=== PATIENT | female | born 1975 | race Caucasian/White ===

== ENCOUNTER 2024-03-11 12:09 | Inpatient (IN) | payer OTHER, SELFPAY ==
[2024-03-11] VITALS (32 sets, daily range): BP systolic 78–200; BP diastolic 39–114; PULSE 81–141; RESP 0–24; TEMP 34.7–37.2; O2SAT 50–100; BMI 29.5; BMI 29.6
--- NOTE | ~2024-03-11 | XR_ITS ---
EXAMINATION: XR CHEST CLINICAL INFORMATION: Respiratory arrest COMPARISON: None available. TECHNIQUE: Frontal view of the chest was obtained. FINDINGS: ET tube is approximately 3.3 cm above the alisia. NG tube is in place, distal tip not included, side hole below the GE junction. Partial visualization of distended air-filled structure in the left upper quadrant. Heart, mediastinum, vascularity within normal limits Paddle partially obscures the right upper lung but no consolidations or effusions are recognized. Bony structures are intact. XR/XR chest 1V IMPRESSION: Lines as described. No acute cardiopulmonary disease.
--- NOTE | ~2024-03-11 | CT_ITS ---
EXAMINATION: CT HEAD WITHOUT CONTRAST CLINICAL INFORMATION: Altered mental status. Respiratory arrest. Unresponsive. COMPARISON: CT head from 03/11/2024. TECHNIQUE: Contiguous axial imaging was performed from the skull base to vertex without intravenous administration of contrast. This CT examination was performed using dose optimization techniques as appropriate, variously including the following: *Automated exposure control. *Adjustment of mA and/or kV according to patient size (this includes techniques or standardized protocols for targeted exams where dose is matched to indication/reason for exam; i.e. extremities or head). *Use of iterative reconstruction technique. DLP: 734 mGy-cm FINDINGS: There is no evidence of acute intracranial hemorrhage or edematous territorial infarction. Garcia-white matter differentiation is preserved. There is no abnormal attenuation within the brain parenchyma. The ventricles are normal in morphology and size. No evidence for obstructive hydrocephalus. No abnormal mass effect or midline shift. No extra-axial fluid collections. No acute soft tissue or osseous abnormalities. Mild mucosal thickening of the paranasal sinuses. The mastoid air cells and middle ear cavities are clear. CT/CT head/brain wo IV con IMPRESSION: No evidence of acute intracranial hemorrhage or edematous territorial infarction.
--- NOTE | ~2024-03-11 | XR_ITS ---
EXAMINATION: XR CHEST CLINICAL INFORMATION: Possible pneumonia COMPARISON: Previous chest x-ray and chest CTA from yesterday TECHNIQUE: Frontal view of the chest was obtained. FINDINGS: Endotracheal tube tip 5 cm above the [place]. Nasogastric tube projects over proximal to mid stomach. Cardiac and mediastinal contours are normal. The lungs are clear without evidence of pneumonia. No pleural effusion or pneumothorax. XR/XR chest 1V IMPRESSION: Satisfactory position of endotracheal tube and nasogastric tube. No evidence of pneumonia.
--- NOTE | ~2024-03-11 | US_ITS ---
EXAMINATION: US VENOUS ULTRASOUND WITH DOPPLER LOWER EXTREMITY, BILATERAL CLINICAL INFORMATION: Pulmonary embolism COMPARISON: None available. TECHNIQUE: Ultrasound of the deep veins is performed from the hip to the calf with compression sonography and color and pulse Doppler assessment. Spectral analysis with color-flow imaging is performed. FINDINGS: RIGHT: There is normal venous compression and respiratory variation and augmented flow. The visualized common femoral vein, superficial femoral vein, profunda femoral vein, popliteal vein, and the trifurcation region shows no evidence of deep venous thrombosis. There is no significant popliteal fossa cyst. LEFT: There is normal venous compression and respiratory variation and augmented flow. The visualized common femoral vein, superficial femoral vein, profunda femoral vein, popliteal vein, and the trifurcation region shows no evidence of deep venous thrombosis. There is no significant popliteal fossa cyst. If the patient's symptoms persist, followup ultrasound in 5 days 7 days might be of value to exclude proximal propagation from a non-visualized calf vein. US/US venous duplex LE BI IMPRESSION: No DVT demonstrated in the bilateral lower extremity.
--- NOTE | ~2024-03-11 | CT_ITS ---
EXAMINATION: CT ANGIOGRAM OF THE CHEST WITH AND WITHOUT CONTRAST (CT PULMONARY ANGIOGRAM FOR PE) CLINICAL INFORMATION: Altered mental status (unresponsive). COMPARISON: None available. TECHNIQUE: Prior to contrast administration, noncontrast localization images were obtained. Subsequently, multidetector volumetric imaging was performed from the thoracic inlet to below the diaphragms following the administration of 65 mL Omnipaque 350 intravenous contrast. No contrast reaction reported Sagittal, coronal, and MIP oblique sagittal reformatted images were obtained on the CT workstation, uploaded to PACS, and reviewed. This CT examination was performed using dose optimization techniques as appropriate, variously including the following: *Automated exposure control *Adjustment of mA and/or kV according to patient size (this includes techniques or standardized protocols for targeted exams where dose is matched to indication/reason for exam; i.e. extremities or head) *Use of iterative reconstruction technique Total exam dose-length product 1201 mGy-cm FINDINGS: QUALITY OF STUDY/CONTRAST BOLUS: Suboptimal. PULMONARY ARTERIES: Within the right upper lobe anterior branch (11:[id number]), a small filling defect is seen. There are 2 additional bull's-eye defects within smaller upper lobe branches suspicious for small pulmonary emboli. THORACIC AORTA: No aneurysm. LUNG: No focal consolidation, nodules or masses. PLEURA: No pleural effusion or pneumothorax. MEDIASTINUM: Normal heart size. No pericardial effusion. No hilar or mediastinal lymphadenopathy. No evidence of septal bowing or right heart strain. Endotracheal and nasogastric tubes are noted. CORONARY ARTERY CALCIFICATION: None visualized on this study. CHEST WALL/AXILLA: No axillary or internal mammary lymphadenopathy. OSSEOUS STRUCTURES: There is multi-level lower cervical and thoracic spondylosis. No acute or aggressive osseous finding is noted. UPPER ABDOMEN: Unremarkable. No reflux of contrast into the hepatic veins to suggest elevated right heart pressures. CT/CT angio chest PE protocol IMPRESSION: Somewhat suboptimal bolus phase. No large central pulmonary embolus is seen. Small right upper lobe pulmonary emboli are noted. The lungs are grossly clear. No pleural effusion or pneumothorax is seen. VTE: positive This critical result was discussed with Dr. Harmon (ICU General Office Worker) at 6:20 PM on 03/11/2024, and it was ascertained that the content and urgency of this report was understood at the time of direct communication.
[2024-03-11] MEDS: Rocuronium Bromide 50 MG/5 ML VIAL IVPUSH (12:11)
[2024-03-11] MEDS: Etomidate 20 MG/10 ML VIAL IVPUSH (12:11)
[2024-03-11] MEDS: methylPREDNISolone Sod Succ 125 MG/2 ML VIAL IVPUSH (12:16)
[2024-03-11] MEDS: Magnesium Sulfate/H2O 2 GM/50 ML PIGGYBACK IV (12:28)
[2024-03-11] MEDS: Albuterol Sulfate 7.5 MG, Albuterol/Iprat 2.5/0.5MG 3 ML 3 ML INHALE ×2 (12:32→12:46)
[2024-03-11 12:36] LABS: Prothrombin Time 12.7 SEC (11.1-13.3)
[2024-03-11] MEDS: propofoL 1,000 MG/100 ML VIAL 14.47 MG IVCONT (12:36)
[2024-03-11] MEDS: fentaNYL citrate/NS 1,000 MCG/100 ML PLAST..BAG 2.5 MCG IVCONT (12:37)
--- NOTE | 2024-03-11 12:37 | ED_ITS ---
HPI - SOB/Dyspnea General Chief Complaint: Upper Respiratory Symptoms Stated Complaint: DIFF BREATHING,AMS,,UNSEUC INTUB PER EMS Time Seen by Provider: 03/11/24 12:16 Source: EMS Mode of arrival: EMS Limitations: altered mental status History of Present Illness HPI Narrative: patient with reported hx of asthma, anxiety per EMS called due to difficulty breathing and reportedly was anxious and was using albuterol and tried a THC vape pen. They noted she was diaphoretic and gave her albuterol. She became unresponsive, cyanotic and diaphoretic. Attempts at intubation but failed x 1. BVM en route on arrival mottled and cyanotic with pulse ox 27%. There was no other history intubated on ED arrival RSI x 1 attempt - noted slight vomit in airway along with tongue abrasion to R distal tongue. EMS notes she never lost pulse but did theo down to 42 at one point Daughter notes her asthma has been acting up. The patient has traveled to [place] in the last month. The patient also detoxed herself off her anxiety meds in the last two weeks. No drug abuse in past. MD elicited complaint: shortness of breath and anxiety Pertinent past history: asthma Onset (ago): unknown Context: other Timing: progressively worsening Severity: severe Exacerbating factors: other Relieving factors: nothing Known history of: asthma Associated symptoms: other (had almost respiratory arrest with AMS and collapse in front of EMS ) Treatment prior to arrival: oxygen and bronchodilator Related Data Home Medications ?Medication ?Instructions ?Recorded ?Confirmed albuterol sulfate 90 mcg/actuation 2 puff inhalation Q6H PRN 03/11/24 03/11/24 aerosol inhaler (Ventolin HFA) Shortness Of Breath Or Wheezing buspirone 10 mg tablet 10 mg PO BID 03/11/24 03/11/24 fenofibrate nanocrystallized 145 145 mg PO DAILY 03/11/24 03/11/24 mg tablet fluticasone fur. 100 mcg-umeclid 1 ea inhalation DAILY 03/11/24 03/11/24 62.5 mcg-vilant 25 mcg inhalat.powder (Trelegy Ellipta) hydrochlorothiazide 25 mg tablet 25 mg PO DAILY 03/11/24 03/11/24 montelukast 10 mg tablet 10 mg PO BEDTIME 03/11/24 03/11/24 rosuvastatin 40 mg tablet 40 mg PO DAILY 03/11/24 03/11/24 sertraline 50 mg tablet 50 mg PO DAILY 03/11/24 03/11/24 Allergies Allergy/AdvReac Type Severity Reaction Status Date / Time No Known Allergies Allergy Verified 03/11/24 13:02 Review of Systems 2 Review of Systems: ROS unable to be obtained due to altered mental status PMFSH Past Medical History Source: obtained from family and other Medical History Depression Anxiety Asthma Social History Social History (Updated 03/11/24 @ 13:02 by Ivis Waldron DO) Patient Tobacco Use Status: Current someday Tobacco user Smoked in Last 30 Days: Yes Use of substances other than those prescribed or required for medical reasons: Yes Substance Use Type Other:: vape pen Advance Directives: No Physical Exam 2 Vital Signs: Vital Signs: Last Vital Signs Temp 96.6 F L 03/11/24 14:38 Pulse 108 H 03/11/24 14:38 Resp 24 H 03/11/24 14:38 BP 142/81 H 03/11/24 14:38 Pulse Ox 100 03/11/24 14:00 O2 Del Method Mechanical Ventil ation 03/11/24 14:38 FiO2 50 03/11/24 14:38 BMI result Body Mass Index 29.5 Appearance: obtunded. no response. severe acute distress. Eyes: Pupils 3mm sluggish prior to RSI ENT: Pharynx during intubation vomitus noted, abrasion to distal R tongue Neck: Normal inspection. Neck supple. CVS: tachycardic heart rate and rhythm. Pulses normal. Respiratory: Severe respiratory distress very poor effort on arrival being bagged with poor seal no adjunct airway noted. Breath sounds very diminished and tight Abdomen: Soft and nontender. Skin: Skin clammy and mottled in extremities with purple digits on arrival - starting to improve Extremities: No lower extremity edema. No calf ttp Neuro: will not open eyes. does not respond to tactile stimuli, no verbal response GCS 3 Course Course Course Narrative: added on versed agitated family at bedside ICU notified 149pm repeat ABG ordered after nebs and time on vent Reevaluation(s) Reevaluation #1: no response to propofol and fentanyl/versed will try precedex unsure if the THC vape pen is contributing to this seems to have had better response to precedex - she was maxed out on propofol with no sedation Medications Administered Generic Name Dose Route Start Last Admin Trade Name Freq PRN Reason Stop Dose Admin Fentanyl 1,000 mcg in 100 mls @ 0 mls/hr 03/11/24 12:30 03/11/24 14:35 Sublimaze/Ns IVCONT 150 mcg/hr .Q0M DARY 15 mls/hr Titration Protocol Per Protocol Sodium Chloride 1,000 mls @ 100 mls/hr 03/11/24 12:30 03/11/24 12:38 Ns IVCONT 100 mls/hr .Q10H DARY Administration Midazolam HCl 50 mg in 50 mls @ 2 mls/hr 03/11/24 13:30 03/11/24 14:34 Versed IVCONT 4 mg/hr .Q24H DARY 4 mls/hr Infusion 2 MG/HR Dexmedetomidine HCl 400 mcg in 100 mls @ 0 mls/hr 03/11/24 14:30 03/11/24 14:37 Precedex IVCONT 1.5 mcg/kg/hr .Q0M DARY 30.15 mls/hr Titration Protocol Per Protocol Discontinued Medications Generic Name Dose Route Start Last Admin Trade Name Freq PRN Reason Stop Dose Admin Albuterol Sulfate 7.5 mg/ 0 mg 03/11/24 12:31 03/11/24 12:32 Albuterol/Ipratropium 3 ml INHALE 03/11/24 12:32 10 each ONCE ONE Administration Albuterol Sulfate 7.5 mg/ 0 mg 03/11/24 12:45 03/11/24 12:46 Albuterol/Ipratropium 3 ml INHALE 03/11/24 12:46 10 each ONCE ONE Administration Etomidate 20 mg 03/11/24 12:19 03/11/24 12:11 Etomidate 20 Mg/10 Ml Vial IVPUSH 03/11/24 12:20 20 mg ONCE ONE Administration Propofol 1,000 mg in 100 mls @ 0 mls/hr 03/11/24 12:30 03/11/24 14:18 Diprivan IVCONT 0 mcg/kg/min .Q0M DARY 0 mls/hr Titration Protocol Per Protocol Magnesium Sulfate 2 gm in 50 mls @ 25 mls/hr 03/11/24 12:19 03/11/24 12:28 Magnesium Sulfate/H2o IV 03/11/24 14:18 25 mls/hr ONCE ONE Administration Piperacillin Sod/Tazobactam 50 mls @ 100 mls/hr 03/11/24 13:01 03/11/24 14:03 Sod 3.375 gm/ Sodium Chloride IV 03/11/24 13:30 Infused ONCE ONE Infusion Iohexol 65 ml 03/11/24 13:38 03/11/24 13:38 Iohexol 350 Mg/Ml 75 Ml Infus..Btl IV 03/11/24 13:39 65 ml ONCE ONE Administration Methylprednisolone Sodium Succinate 125 mg 03/11/24 12:17 03/11/24 12:16 Methylprednisolone Sod Succ 125 Mg/2 Ml Vial IVPUSH 03/11/24 12:18 125 mg ONCE ONE Administration Midazolam HCl 4 mg 03/11/24 13:18 03/11/24 13:24 Midazolam Hcl/Pf 2 Mg/2 Ml Vial IVPUSH 03/11/24 13:19 4 mg ONCE ONE Administration Midazolam HCl 4 mg 03/11/24 14:12 03/11/24 14:15 Midazolam Hcl/Pf 2 Mg/2 Ml Vial IVPUSH 03/11/24 14:13 4 mg ONCE ONE Administration Rocuronium [place] 50 mg 03/11/24 12:19 03/11/24 12:11 Rocuronium [place] 50 Mg/5 Ml Vial IVPUSH 03/11/24 12:20 50 mg ONCE ONE Administration Medical Decision Making Medical Decision Making MDM Narrative: 49 yo female with PMH of asthma, HTN here with c/o GCS 3 and respiratory hypoxic failure - no loss of pulses pre hospital at this time given presentation intubation on arrival, labs, CXR, zosyn given vomit seen in airway on intubation concern for aspiration, IV steroids, magnesium, nebs, CT head for any evidence of ICH given hypertension and CTA:PE to rule out any VTE as source of acute event. She is hypertensive will add on fentanyl and propofol to see if that improved BP before we start adding anti-HTNives. Differential Diagnosis Differential Diagnoses: The differential diagnosis associated with the presentation includes respiratory failure, aspiration pneumonia, hypoxic brain injury, VTE Admission/Observation Consideration of admission/observation: Escalation of care including admission/observation considered ICU level of care Consult Healthcare Provider Management of the patient was discussed with: Office Equipment Mechanic Lab Data MDM Lab Attestation statement: I reviewed the patient's lab results. 03/11/24 12:21 03/11/24 12:21 Labs: Lab Results 03/11/24 03/11/24 03/11/24 Range/Units 12:16 12:21 12:27 WBC 13.9 H (4.8-10.8) X10*3/uL RBC 4.47 (4.20-5.50) X10*6/uL Hgb 13.2 (12.0-16.0) g/dl Hct 41.1 (37.0-47.0) % MCV 91.9 (80.0-98.0) fL MCH 29.5 (27.0-33.0) pg MCHC 32.1 (31.0-35.0) g/dl RDW 12.0 (11.0-16.0) % Plt Count 434 H (160-400) X10*3/uL MPV 9.0 L (9.4-12.3) fL Immature Gran % (Auto) 1.7 H (0.0-0.4) % Neut % (Auto) 38.4 L (45-73) % Lymph % (Auto) 49.9 H (20-40) % [place] % (Auto) 6.8 (2-11) % Eos % (Auto) 2.8 (0-4) % Baso % (Auto) 0.4 (0-2) % Lymph # (Auto) 6.9 H (1.2-4.9) X10*3/uL [place] # (Auto) 0.9 (0.1-1.2) X10*3/uL Eos # (Auto) 0.4 (0.0-0.4) X10*3/uL Baso # (Auto) 0.1 (0.0-0.2) X10*3/uL Abs Immat Gran (auto) 0.23 H (0.00-0.03) X10*3/uL Absolute Neuts (auto) 5.3 (2.0-8.3) x10*3/uL Absolute Nucleated RBC 0.000 (0.0-0.012) X10*3/uL Nucleated RBC % (auto) 0.0 (0.0-0.2) /100WBC Smear Tech's Comments VERIFIED PT 12.7 (11.1-13.3) SEC INR 1.0 (0.9-1.1) O2 Saturation % ABG pH at Pt Temp (7.35-7.45) ABG pCO2 at Pt Temp (32-45) mmHg ABG pO2 at Pt Temp (83-108) mmHg ABG HCO3 (22-26) mmol/L ABG Base Excess (Actual) mmol/L VBG pH 6.81 L* (7.32-7.43) VBG pCO2 93 mmHg VBG pO2 138 mmHg VBG HCO3 15 L (22-26) mmol/L VBG O2 Saturation 97.0 % VBG Base Excess -20.6 mmol/L Sodium 139 (135-145) mmol/L Potassium 3.0 L (3.3-5.1) mmol/L Chloride 105 (96-108) mmol/L Carbon Dioxide 15 L (22-29) mmol/L Anion Gap 22 H (12-20) BUN 13 (9-16) mg/dL Creatinine 0.91 (0.5-1.4) mg/dL Estim Creat Clear Calc 77.4 Estimated GFR > 60 POC Glucose 304 H (60-115) mg/dL Random Glucose 347 H (60-115) mg/dL Lactic Acid 12.7 H* (0.5-2.0) mmol/L Calcium 8.9 (8.4-10.2) mg/dL Magnesium 3.2 H (1.6-2.6) mg/dL Total Bilirubin 0.3 (0.0-1.0) mg/dL Direct Bilirubin 0.1 (0.0-0.5) mg/dL AST 26 (5-31) U/L ALT 19 (0-31) U/L Alkaline Phosphatase 48 (39-117) U/L Troponin I High Sens < 2.7 (<3.5-17.0) ng/L B-Natriuretic Peptide 43 (<100) pg/mL Total Protein 6.8 (6.5-8.0) g/dL Albumin 3.8 (3.5-5.0) g/dL Lipase 40 (8-78) U/L Procalcitonin < 0.02 ng/mL TSH 7.71 H (0.32-4.0) uIU/mL Free T4 0.76 (0.71-1.85) ng/dL Beta HCG, Quant < 2 mIU/mL Urine Color Urine Appearance Urine pH (5.0-9.0) Ur Specific [place] (1.005-1.025) Urine Protein (Neg-Trace) mg/dL Urine Glucose (UA) (Negative) mg/dL Urine Ketones (Negative) mg/dL Urine Blood (Negative) Urine Nitrite (Negative) Ur Leukocyte Esterase (Negative) Urine RBC (0-2) /HPF Urine WBC (0-5) /HPF Ur Squamous Epith Cells (0-2) /HPF Urine Bacteria (None Seen) Hyaline Casts (0-2) /LPF Urine Opiates Screen (Not Detect) Ur Buprenorphine Scrn (Not Detect) ng/mL Ur Oxycodone Screen (Not Detect) ng/mL Urine Methadone Screen (Not Detect) ng/mL Urine Fentanyl Screen (Not Detect) Ur Barbiturates Screen (Not Detect) Ur Phencyclidine Scrn (Not Detect) Ur Amphetamines Screen (Not Detect) U Benzodiazepines Scrn (Not Detect) Urine Cocaine Screen (Not Detect) U Marijuana (THC) Screen (Not Detect) Ethyl Alcohol < 10 mg/dL Influenza Type A (PCR) (Negative) Influenza Type B (PCR) (Negative) RSV RNA Qual (PCR) (Negative) SARS-CoV-2 RNA (RT-PCR) (Negative) 03/11/24 03/11/24 03/11/24 Range/Units 12:40 12:48 14:03 WBC (4.8-10.8) X10*3/uL RBC (4.20-5.50) X10*6/uL Hgb (12.0-16.0) g/dl Hct (37.0-47.0) % MCV (80.0-98.0) fL MCH (27.0-33.0) pg MCHC (31.0-35.0) g/dl RDW (11.0-16.0) % Plt Count (160-400) X10*3/uL MPV (9.4-12.3) fL Immature Gran % (Auto) (0.0-0.4) % Neut % (Auto) (45-73) % Lymph % (Auto) (20-40) % [place] % (Auto) (2-11) % Eos % (Auto) (0-4) % Baso % (Auto) (0-2) % Lymph # (Auto) (1.2-4.9) X10*3/uL [place] # (Auto) (0.1-1.2) X10*3/uL Eos # (Auto) (0.0-0.4) X10*3/uL Baso # (Auto) (0.0-0.2) X10*3/uL Abs Immat Gran (auto) (0.00-0.03) X10*3/uL Absolute Neuts (auto) (2.0-8.3) x10*3/uL Absolute Nucleated RBC (0.0-0.012) X10*3/uL Nucleated RBC % (auto) (0.0-0.2) /100WBC Smear Tech's Comments PT (11.1-13.3) SEC INR (0.9-1.1) O2 Saturation 98.0 % ABG pH at Pt Temp 7.29 L (7.35-7.45) ABG pCO2 at Pt Temp 47 H (32-45) mmHg ABG pO2 at Pt Temp 119 H (83-108) mmHg ABG HCO3 22 (22-26) mmol/L ABG Base Excess (Actual) -3.9 mmol/L VBG pH (7.32-7.43) VBG pCO2 mmHg VBG pO2 mmHg VBG HCO3 (22-26) mmol/L VBG O2 Saturation % VBG Base Excess mmol/L Sodium (135-145) mmol/L Potassium (3.3-5.1) mmol/L Chloride (96-108) mmol/L Carbon Dioxide (22-29) mmol/L Anion Gap (12-20) BUN (9-16) mg/dL Creatinine (0.5-1.4) mg/dL Estim Creat Clear Calc Estimated GFR POC Glucose (60-115) mg/dL Random Glucose (60-115) mg/dL Lactic Acid (0.5-2.0) mmol/L Calcium (8.4-10.2) mg/dL Magnesium (1.6-2.6) mg/dL Total Bilirubin (0.0-1.0) mg/dL Direct Bilirubin (0.0-0.5) mg/dL AST (5-31) U/L ALT (0-31) U/L Alkaline Phosphatase (39-117) U/L Troponin I High Sens (<3.5-17.0) ng/L B-Natriuretic Peptide (<100) pg/mL Total Protein (6.5-8.0) g/dL Albumin (3.5-5.0) g/dL Lipase (8-78) U/L Procalcitonin ng/mL TSH (0.32-4.0) uIU/mL Free T4 (0.71-1.85) ng/dL Beta HCG, Quant mIU/mL Urine Color Yellow Urine Appearance Clear Urine pH 6.0 (5.0-9.0) Ur Specific [place] 1.010 (1.005-1.025) Urine Protein 300 (3+) H (Neg-Trace) mg/dL Urine Glucose (UA) >=1000 H (Negative) mg/dL Urine Ketones Negative (Negative) mg/dL Urine Blood Small (1+) H (Negative) Urine Nitrite Negative (Negative) Ur Leukocyte Esterase Negative (Negative) Urine RBC 3-5 H (0-2) /HPF Urine WBC 6-10 H (0-5) /HPF Ur Squamous Epith Cells 0-2 (0-2) /HPF Urine Bacteria Trace (None Seen) Hyaline Casts 0-2 (0-2) /LPF Urine Opiates Screen Not Detected (Not Detect) Ur Buprenorphine Scrn Not Detected (Not Detect) ng/mL Ur Oxycodone Screen Not Detected (Not Detect) ng/mL Urine Methadone Screen Not Detected (Not Detect) ng/mL Urine Fentanyl Screen Not Detected (Not Detect) Ur Barbiturates Screen Not Detected (Not Detect) Ur Phencyclidine Scrn Not Detected (Not Detect) Ur Amphetamines Screen Not Detected (Not Detect) U Benzodiazepines Scrn Not Detected (Not Detect) Urine Cocaine Screen Not Detected (Not Detect) U Marijuana (THC) Screen POSITIVE H (Not Detect) Ethyl Alcohol mg/dL Influenza Type A (PCR) NEGATIVE (Negative) Influenza Type B (PCR) NEGATIVE (Negative) RSV RNA Qual (PCR) NEGATIVE (Negative) SARS-CoV-2 RNA (RT-PCR) NEGATIVE (Negative) Independent Interpretation I performed an independent interpretation of an: EKG, Plain X-Ray and CT Scan (no ICH) Interpretation: Rate: 149 Rhythm: sinus tachycardia [place]: normal Normal P waves. Normal [place]. Normal QRS complex. ST T wave : no [place], nonspecific ST depressions lateral leads qTC: 374 prior studies: no priors The study has been interpreted contemporaneously by me. . Radiology Impression Discussion of test interpretation with radiology: I have reviewed the radiologist's reading. Independent Historian Clinical information obtained from an independent historian. History obtained from or confirmed by: EMS and Other (daughter) Procedures Procedure Narrative Procedure Narrative: limited bedside ECHO apical subxiphoid hyperdynamic no GWMA no pericardial effusion Intubation Intubation Type:: Emergency Endotracheal Intubation Time out performed: Yes sedative: Etomidate Mg Given: 20 paralytic: Rocuronium Mg Given: 50 Laryngoscope: other (4 glidescope blade) ET Tube Size: 7.5 Tube Secured Depth (cm): 21 Tube Secured Location: teeth Tube Placement Confirmation: visualized tube passing through cords, equal breath sounds bilaterally, no breath sounds over epigastrium and confirmation by capnometry Patient Tolerated Procedure: well and no complications Critical Care Time Critical Care Time Critical Care Time: Yes Total Critical Care Time: 75 Attestation: repeat labs, respiratory arrest care, family discussions, admission, consult I attest to this time spent taking care of the patient Discharge Plan Discharge Clinical Impression: Acidosis, lactic Respiratory failure with hypoxia and hypercapnia Qualifiers: Chronicity: acute Qualified Code(s): J96.01 - Acute respiratory failure with hypoxia Patient Disposition: Admitted As Inpatient
[2024-03-11] MEDS: 0.9 % Sodium Chloride 1,000 ML 100 ML IVCONT ×2 (12:38→21:14)
[2024-03-11 12:39] LABS: Glucose, Whole Blood 304 mg/dL (60-115)
[2024-03-11 12:41] LABS: VBG Base Excess -20.6 mmol/L; VBG HCO3 15 mmol/L (22-26); VBG pCO2 93 mmHg; VBG pH 6.81 (7.32-7.43); VBG pO2 138 mmHg
[2024-03-11 12:41] LABS: Venous Blood Gas Refer to POC result
[2024-03-11 12:44] LABS: Basophils Absolute Auto 0.1 X10*3/uL (0.0-0.2); Basophils Percent Auto 0.4 % (0-2); Eosinophils Absolute Auto 0.4 X10*3/uL (0.0-0.4); Eosinophils Percent Auto 2.8 % (0-4); Hematocrit 41.1 % (37.0-47.0); Hemoglobin 13.2 g/dl (12.0-16.0); Imm Gran Abs Auto 0.23 X10*3/uL (0.00-0.03); Imm Gran Pct Auto 1.7 % (0.0-0.4); Lymphocytes Percent Auto 49.9 % (20-40); MANUAL DIFF FLAG SCAN; Mean Corpuscular HGB Conc 32.1 g/dl (31.0-35.0); Mean Corpuscular Hemoglobin 29.5 pg (27.0-33.0); Mean Corpuscular Volume 91.9 fL (80.0-98.0); Monocytes Absolute Auto 0.9 X10*3/uL (0.1-1.2); Monocytes Percent Auto 6.8 % (2-11); Neutrophils Absolute Auto 5.3 x10*3/uL (2.0-8.3); Neutrophils Percent Auto 38.4 % (45-73); Platelet Count 434 X10*3/uL (160-400); Red Blood Count 4.47 X10*6/uL (4.20-5.50); SCAN SMEAR FLAG 1; White Blood Count 13.9 X10*3/uL (4.8-10.8)
[2024-03-11 12:45] LABS: Lymphocytes Absolute Auto 6.9 X10*3/uL (1.2-4.9)
[2024-03-11 12:52] LABS: B Type Natriuretic Peptide 43 pg/mL (<100)
[2024-03-11 12:54] LABS: Alanine Aminotransferase 19 U/L (0-31); Albumin Level 3.8 g/dL (3.5-5.0); Alkaline Phosphatase 48 U/L (39-117); Anion Gap 22 (12-20); Aspartate Amino Transferase 26 U/L (5-31); Bilirubin Direct 0.1 mg/dL (0.0-0.5); Bilirubin Total 0.3 mg/dL (0.0-1.0); Blood Urea Nitrogen 13 mg/dL (9-16); Calcium 8.9 mg/dL (8.4-10.2); Carbon Dioxide 15 mmol/L (22-29); Chloride 105 mmol/L (96-108); Creatinine Clr Calc Pharmacy 77.4; Estimated Glomerular Filt Rate > 60; Ethanol < 10 mg/dL; Glucose Random 347 mg/dL (60-115); Lipase 40 U/L (8-78); Magnesium 3.2 mg/dL (1.6-2.6); Sodium 139 mmol/L (135-145); Total Protein 6.8 g/dL (6.5-8.0)
[2024-03-11 12:57] LABS: Lactic Acid 12.7 mmol/L (0.5-2.0); Troponin-I High Sensitivity < 2.7 ng/L (<3.5-17.0)
[2024-03-11 13:04] LABS: Appearance Urine Clear; Color Urine Yellow; Glucose Urine UA >=1000 mg/dL (Negative); Leukocyte Esterase Urine Negative (Negative); Nitrite Urine Negative (Negative); UMIC TRIGGER UACC YES; Urine Blood Small (1+) (Negative); Urine Ketones Negative (Negative); Urine Protein 300 (3+) mg/dL (Neg-Trace)
[2024-03-11 13:10] LABS: Amphetamine Screen Urine Not Detected (Not Detect); Barbiturates, Urine Not Detected (Not Detect); Benzodiazepines Screen Urine Not Detected (Not Detect); Buprenorphine Scr Not Detected (Not Detect); Cannabinoid Screen Urine POSITIVE (Not Detect); Cocaine Screen Urine Not Detected (Not Detect); Fentanyl, urine Not Detected (Not Detect); Methadone Screen, Urine Not Detected (Not Detect); Opiate Screen Urine Not Detected (Not Detect); Oxycodone Screen Urine Not Detected (Not Detect); Phencyclidine Screen Urine Not Detected (Not Detect)
[2024-03-11] MEDS: Piperacillin Sodium/Tazobactam 3.375 GM in 0.9 % Sodium Chloride 50 ML IV (13:10)
[2024-03-11 13:11] LABS: HCG Quantitative < 2 mIU/mL; TSH reflex Free T4 7.71 uIU/mL (0.32-4.0)
[2024-03-11 13:18] LABS: Bacteria Urine Trace (None Seen); Hyaline Casts Urine 0-2 /LPF (0-2); Squamous Epithelial Cell Urine 0-2 /HPF (0-2); UACC Culture Trigger YES
[2024-03-11 13:24] LABS: Influenza A PCR NEGATIVE (Negative); Influenza B PCR NEGATIVE (Negative); Resp Syncy Virus RNA Qual PCR NEGATIVE (Negative); SARS COV2 PCR INHOUSE NEGATIVE (Negative)
[2024-03-11] MEDS: Midazolam HCl/PF 2 MG/2 ML VIAL 4 MG IVPUSH ×2 (13:24→14:15)
[2024-03-11 13:29] LABS: SLIDE REVIEW VERIFIED
[2024-03-11 13:31] LABS: Procalcitonin < 0.02 ng/mL
[2024-03-11] MEDS: iohexoL 350 MG/ML 75 ML INFUS..BTL 65 ML IV (13:38)
[2024-03-11] MEDS: Midazolam HCl/NS 50 MG/50 ML PLAST..BAG IVCONT ×2 (13:39→20:09)
--- NOTE | 2024-03-11 13:54 | PHA.MEDREC ---
Pharmacy Consult ? Medication Reconciliation Pharmacy has completed the medication reconciliation. Patient daughter reported she had medications for anxiety, BP, asthma. Utilized claim hsitrory for med rec. She is unsure if she has a maintenance inhaler. Patient has been filling Trelegy regularly since March of 2023 therefore looks complaint to the medication therefore left on home med list. Reports patient has a nebulizer but unsure of which medicaiton and strength. Mindi Noriega, ViktoriyaD
[2024-03-11 14:03] LABS: Free T4 (Free Thyroxine) 0.76 ng/dL (0.71-1.85)
--- NOTE | 2024-03-11 14:04 | PC.NURSE ---
This RN contacted MD about waiting to start potassium until central line or 3rd IV needed, MD okay to hold off on starting potassium until patient in ICU for central line. Pt tolerated CT scans well, brought back to room, sedation titrated to vent compliance/ BP tolerance
[2024-03-11 14:12] LABS: ABG Base Excess -3.9 mmol/L; ABG HCO3 22 mmol/L (22-26); ABG pCO2 47 mmHg (32-45); ABG pH 7.29 (7.35-7.45); ABG pO2 119 mmHg (83-108)
[2024-03-11] MEDS: dexmedeTOMIDidine HCL/NS 400 MCG/100 ML INFUS..BTL 20.1 MCG IVCONT (14:20)
--- NOTE | 2024-03-11 14:21 | PC.NURSE ---
This RN called into room d/t patient waking up on vent, attempted to pull at lines/tube, aware, 4mg versed given IVP, increased drip as well, propofol d/c precedex started at this time
[2024-03-11 14:26] LABS: Reflex Lactate? Lactic Acid Added
[2024-03-11 15:21] LABS: Phosphorus 5.3 mg/dL (2.7-4.5)
--- NOTE | 2024-03-11 15:21 | PC.NURSE ---
Pt brought to ICU by this RN, pt placed onto icu monitoring, report given to SENIOR ANALYST DEVELOPER, versed decreased prior to transport d/t BP drop, BP stabilized at transport with decrease to 3 per MAR. Family in waiting room. Resp at bedside.
[2024-03-11 15:29] LABS: ~Lactic Acid-LAB USE ONLY 4.1 mmol/L (0.5-2.0)
--- NOTE | 2024-03-11 15:32 | PC.NURSE ---
Back charting, Pt had called EMS herself. She was diaphoretic/pale at arrival. Pt arrived by EMS at 1210 in resp arrest, Pt became unresponsive enroute, they attempted intubation in truck but unable to, bagged on arrival, HR 120-150 throughout. Pt was cyanotic on arrival, RSI medications given per JAN, intubated by , 7.5tube 21cm at teeth, intubation happened at 1213. POC on arrival was 306. L AC #18 from EMS, R AC placed by EMS. Only thing know by EMS was that she was smoking her vape this AM and took her inhaler. Denies recent sickness by family. Family contacted once we got into her phone to find out identity. OG placed 1227, vomit removed from both oral/OG. Pt had multiple episodes of waking up on vent, multiple staff members at bedside to hold patient down while sedation medications given per JAN.
[2024-03-11] MEDS: Potassium Chloride/H20 10 MEQ/100 ML PIGGYBACK 100 MEQ IV ×2 (15:49→17:04)
[2024-03-11] MEDS: Chlorhexidine Gluc Oral Rinse 15 ML MOUTHWASH BUCCAL ×2 (15:49→21:14)
--- NOTE | 2024-03-11 16:26 | PM.CCHP ---
History of Present Illness Date of Service: 03/11/24 Attending physician on admission: Luis Fernando Harmon Chief Complaint: Shortness of breaths 49-year-old lady with past medical history of asthma on albuterol inhalers and nebulization as needed, obstructive sleep apnea on CPAP, depression they actually trying to come off of all her medications when to [place] and retired 2 weeks ago. Since she returned back she has been having consistently shortness of breath with cough needing more nebulizations and inhalers which is progressively worsening. denies any fever, no runny nose. This morning her shortness of breath and wheeze had worsened when the left for work. During the day patient called EMS due to worsening wheezing. When the EMS arrived patient was still awake but severely dyspneic later went into respiratory arrest without losing a pulse. She was a very difficult airway and EMS could not obtain a secured airway so was transferred to the hospital via Ambu bag ventilation. Upon arrival to the ED patient's saturation was in 20s and 30s, total time required prior to presentation to the hospital and intubation was about 30 minutes. Patient was intubated and placed on ventilator support due to severe hypoxia. MICU consulted for admission. Patient is also a smoker and has been lately using marijuana vapes Review of Systems Review of Systems: Unable to obtain as patient is intubated and on ventilator support PMFSH Past Medical History Medical History (Updated 03/11/24 @ 16:58 by Luis Fernando Harmon MD) Depression Anxiety Asthma Family History Pertinent family history: Both parents has asthma, son has asthma, siblings have asthma, Social History Social History (Updated 03/11/24 @ 13:02 by Ivis Waldron DO) Household Members: Unknown / Unable to assess Patient Tobacco Use Status: Tobacco use Unknown Smoked in Last 30 Days: Yes Use of substances other than those prescribed or required for medical reasons: Unable to respond Substance Use Type Other:: vape pen Advance Directives: No Patient : No : No Poor oral hygiene: No Meds Allergies Allergy/AdvReac Type Severity Reaction Status Date / Time No Known Allergies Allergy Verified 03/11/24 13:02 Active Medications: Current Medications Acetaminophen (Acetaminophen 325 Mg Tablet) 650 mg PO Q6H PRN PRN Reason: Fever >100.4 Chlorhexidine Gluconate (Chlorhexidine Gluc Oral Rinse 15 Ml Mouthwash) 15 ml BUCCAL Q8H DARY Last Admin: 04/23/24 15:49 Dose: 15 ml Famotidine (Famotidine/Pf 20 Mg/2 Ml Vial) 20 mg IVPUSH BID DARY Fentanyl (Sublimaze/Ns) 1,000 mcg in 100 mls @ 0 mls/hr IVCONT .Q0M DARY; Protocol Last Titration: 03/11/24 14:35 Dose: 150 mcg/hr, 15 mls/hr Sodium Chloride (Ns) 1,000 mls @ 100 mls/hr IVCONT .Q10H DARY Last Admin: 03/11/24 12:38 Dose: 100 mls/hr Midazolam HCl (Versed) 50 mg in 50 mls @ 4 mls/hr IVCONT .[id number] DARY Last Infusion: 03/11/24 15:05 Dose: 3 mg/hr, 3 mls/hr Dexmedetomidine HCl (Precedex) 400 mcg in 100 mls @ 0 mls/hr IVCONT .Q0M DARY; Protocol Last Titration: 03/11/24 14:37 Dose: 1.5 mcg/kg/hr, 30.15 mls/hr Propofol (Diprivan) 1,000 mg in 100 mls @ 0 mls/hr IVCONT .Q0M DARY; Protocol Ceftriaxone Sodium 2 gm/ (Sodium Chloride) 50 mls @ 100 mls/hr IV Q24H DARY Azithromycin 500 mg/ Sodium (Chloride) 250 mls @ 125 mls/hr IV Q24H DARY Naloxone HCl (Naloxone Hcl 0.4 Mg/Ml Vial) 0.2 mg IVPUSH Q2M PRN PRN Reason: Excessive sedation or RR < 8 Ondansetron HCl (Ondansetron Hcl 4 Mg/2 Ml Vial) 4 mg IVPUSH Q8H PRN PRN Reason: Vomiting Home Medications ?Medication ?Instructions ?Recorded ?Confirmed ?Last Taken ?Type albuterol sulfate 90 mcg/actuation 2 puff inhalation Q6H PRN 03/11/24 03/11/24 03/11/24 History aerosol inhaler (Ventolin HFA) Shortness Of Breath Or Wheezing buspirone 10 mg tablet 10 mg PO BID 03/11/24 03/11/24 2 Weeks Ago History ~02/26/24 fenofibrate nanocrystallized 145 145 mg PO DAILY 03/11/24 03/11/24 2 Weeks Ago History mg tablet ~02/26/24 fluticasone fur. 100 mcg-umeclid 1 ea inhalation DAILY 03/11/24 03/11/24 Unknown History 62.5 mcg-vilant 25 mcg inhalat.powder (Trelegy Ellipta) hydrochlorothiazide 25 mg tablet 25 mg PO DAILY 03/11/24 03/11/24 2 Weeks Ago History ~02/26/24 montelukast 10 mg tablet 10 mg PO BEDTIME 03/11/24 03/11/24 2 Weeks Ago History ~02/26/24 rosuvastatin 40 mg tablet 40 mg PO DAILY 03/11/24 03/11/24 2 Weeks Ago History ~02/26/24 sertraline 50 mg tablet 50 mg PO DAILY 03/11/24 03/11/24 2 Weeks Ago History ~02/26/24 Physical Exam Vital Signs: Vital Signs: Last Vital Signs Temp 96.3 F L 03/11/24 16:00 Pulse 91 03/11/24 16:00 Resp 24 H 03/11/24 16:00 BP 131/83 03/11/24 16:00 Pulse Ox 98 03/11/24 16:00 O2 Del Method Mechanical Ventil ation 03/11/24 16:00 FiO2 30 03/11/24 16:00 BMI result Body Mass Index 29.6 HEENT: Head: Yes normal to inspection and Yes normocephalic Ears: external ears normal and mastoids normal Eyes: General: appearance normal, both eyes and all related structures Alignment and Position: alignment normal Resp: Other: Bilateral air entry equal but significantly diminished. Significant wheezes noted bilaterally Cardio: Other: Normal S1-S2 heard, no murmur GI: Other: Soft, nontender, no organomegaly : General: Yes no CVA tenderness Back/Spine/Pelvis: Back: no CVA tenderness Thoracic/Lumbar Spine: thoracic and lumbar spine normal to inspection Neuro: Other: Patient is intubated and on sedatives, no focal deficits Results Labs 03/11/24 12:21 03/11/24 12:21 Labs: Laboratory Results - last 24 hr 03/11/24 03/11/24 03/11/24 12:16 12:21 12:27 MCV 91.9 MCH 29.5 MCHC 32.1 RDW 12.0 Plt Count 434 H MPV 9.0 L Immature Gran % (Auto) 1.7 H Neut % (Auto) 38.4 L Lymph % (Auto) 49.9 H [place] % (Auto) 6.8 Eos % (Auto) 2.8 Baso % (Auto) 0.4 Lymph # (Auto) 6.9 H [place] # (Auto) 0.9 Eos # (Auto) 0.4 Baso # (Auto) 0.1 Abs Immat Gran (auto) 0.23 H Absolute Neuts (auto) 5.3 Absolute Nucleated RBC 0.000 Nucleated RBC % (auto) 0.0 Smear Tech's Comments VERIFIED PT 12.7 INR 1.0 O2 Saturation ABG pH at Pt Temp ABG pCO2 at Pt Temp ABG pO2 at Pt Temp ABG HCO3 ABG Base Excess (Actual) VBG pH 6.81 L* VBG pCO2 93 VBG pO2 138 VBG HCO3 15 L VBG O2 Saturation 97.0 VBG Base Excess -20.6 Anion Gap 22 H Estim Creat Clear Calc 77.4 Estimated GFR > 60 POC Glucose 304 H Random Glucose 347 H Lactic Acid 12.7 H* Lactic Acid F/U @ 2Hr Calcium 8.9 Phosphorus Magnesium 3.2 H Total Bilirubin 0.3 Direct Bilirubin 0.1 AST 26 ALT 19 Alkaline Phosphatase 48 Troponin I High Sens < 2.7 B-Natriuretic Peptide 43 Total Protein 6.8 Albumin 3.8 Lipase 40 Procalcitonin < 0.02 TSH 7.71 H Free T4 0.76 Beta HCG, Quant < 2 Urine Color Urine Appearance Urine pH Ur Specific [place] Urine Protein Urine Glucose (UA) Urine Ketones Urine Blood Urine Nitrite Ur Leukocyte Esterase Urine RBC Urine WBC Ur Squamous Epith Cells Urine Bacteria Hyaline Casts Urine Opiates Screen Ur Buprenorphine Scrn Ur Oxycodone Screen Urine Methadone Screen Urine Fentanyl Screen Ur Barbiturates Screen Ur Phencyclidine Scrn Ur Amphetamines Screen U Benzodiazepines Scrn Urine Cocaine Screen U Marijuana (THC) Screen Ethyl Alcohol < 10 Influenza Type A (PCR) Influenza Type B (PCR) RSV RNA Qual (PCR) SARS-CoV-2 RNA (RT-PCR) 03/11/24 03/11/24 03/11/24 12:40 12:48 14:03 MCV MCH MCHC RDW Plt Count MPV Immature Gran % (Auto) Neut % (Auto) Lymph % (Auto) [place] % (Auto) Eos % (Auto) Baso % (Auto) Lymph # (Auto) [place] # (Auto) Eos # (Auto) Baso # (Auto) Abs Immat Gran (auto) Absolute Neuts (auto) Absolute Nucleated RBC Nucleated RBC % (auto) Smear Tech's Comments PT INR O2 Saturation 98.0 ABG pH at Pt Temp 7.29 L ABG pCO2 at Pt Temp 47 H ABG pO2 at Pt Temp 119 H ABG HCO3 22 ABG Base Excess (Actual) -3.9 VBG pH VBG pCO2 VBG pO2 VBG HCO3 VBG O2 Saturation VBG Base Excess Anion Gap Estim Creat Clear Calc Estimated GFR POC Glucose Random Glucose Lactic Acid Lactic Acid F/U @ 2Hr Calcium Phosphorus Magnesium Total Bilirubin Direct Bilirubin AST ALT Alkaline Phosphatase Troponin I High Sens B-Natriuretic Peptide Total Protein Albumin Lipase Procalcitonin TSH Free T4 Beta HCG, Quant Urine Color Yellow Urine Appearance Clear Urine pH 6.0 Ur Specific [place] 1.010 Urine Protein 300 (3+) H Urine Glucose (UA) >=1000 H Urine Ketones Negative Urine Blood Small (1+) H Urine Nitrite Negative Ur Leukocyte Esterase Negative Urine RBC 3-5 H Urine WBC 6-10 H Ur Squamous Epith Cells 0-2 Urine Bacteria Trace Hyaline Casts 0-2 Urine Opiates Screen Not Detected Ur Buprenorphine Scrn Not Detected Ur Oxycodone Screen Not Detected Urine Methadone Screen Not Detected Urine Fentanyl Screen Not Detected Ur Barbiturates Screen Not Detected Ur Phencyclidine Scrn Not Detected Ur Amphetamines Screen Not Detected U Benzodiazepines Scrn Not Detected Urine Cocaine Screen Not Detected U Marijuana (THC) Screen POSITIVE H Ethyl Alcohol Influenza Type A (PCR) NEGATIVE Influenza Type B (PCR) NEGATIVE RSV RNA Qual (PCR) NEGATIVE SARS-CoV-2 RNA (RT-PCR) NEGATIVE 03/11/24 03/11/24 14:57 14:58 MCV MCH MCHC RDW Plt Count MPV Immature Gran % (Auto) Neut % (Auto) Lymph % (Auto) [place] % (Auto) Eos % (Auto) Baso % (Auto) Lymph # (Auto) [place] # (Auto) Eos # (Auto) Baso # (Auto) Abs Immat Gran (auto) Absolute Neuts (auto) Absolute Nucleated RBC Nucleated RBC % (auto) Smear Tech's Comments PT INR O2 Saturation ABG pH at Pt Temp ABG pCO2 at Pt Temp ABG pO2 at Pt Temp ABG HCO3 ABG Base Excess (Actual) VBG pH VBG pCO2 VBG pO2 VBG HCO3 VBG O2 Saturation VBG Base Excess Anion Gap Estim Creat Clear Calc Estimated GFR POC Glucose Random Glucose Lactic Acid Lactic Acid F/U @ 2Hr 4.1 H* Calcium Phosphorus 5.3 H Magnesium Total Bilirubin Direct Bilirubin AST ALT Alkaline Phosphatase Troponin I High Sens B-Natriuretic Peptide Total Protein Albumin Lipase Procalcitonin TSH Free T4 Beta HCG, Quant Urine Color Urine Appearance Urine pH Ur Specific [place] Urine Protein Urine Glucose (UA) Urine Ketones Urine Blood Urine Nitrite Ur Leukocyte Esterase Urine RBC Urine WBC Ur Squamous Epith Cells Urine Bacteria Hyaline Casts Urine Opiates Screen Ur Buprenorphine Scrn Ur Oxycodone Screen Urine Methadone Screen Urine Fentanyl Screen Ur Barbiturates Screen Ur Phencyclidine Scrn Ur Amphetamines Screen U Benzodiazepines Scrn Urine Cocaine Screen U Marijuana (THC) Screen Ethyl Alcohol Influenza Type A (PCR) Influenza Type B (PCR) RSV RNA Qual (PCR) SARS-CoV-2 RNA (RT-PCR) ABG Attestation: I personally reviewed and interpreted this ABG as follows: Imaging Radiologist's Impressions: Impressions Chest X-Ray 03/11/24 12:50 IMPRESSION: Lines as described. No acute cardiopulmonary disease. Assessment and Plan (1) Respiratory failure with hypoxia and hypercapnia: Qualifiers: Chronicity: acute Qualified Code(s): J96.01 - Acute respiratory failure with hypoxia; J96.02 - Acute respiratory failure with hypercapnia Status: Acute (2) Acidosis, lactic: Status: Acute (3) Acute severe asthma: Status: Acute Plan Rosa Strange is a 49-year-old lady with past medical history of asthma, sleep apnea, depression presents to the ED with Worsening respiratory symptoms for the past 2 weeks and went into respiratory arrest and severe hypoxia for about 30 minutes prior to arrival to ED which she needed to to be intubated placed on ventilator support for the management of acute severe asthma Neuro: CT brain did not show any acute intracranial pathology Patient was initially placed on propofol drip but was very aggressive and also dropped her blood pressure is so switched to Versed and Precedex ICU delirium precautions Cardiology: Blood pressure is okay, not on any vasopressor support Lactic acidosis: Presented with lactate over 10, repeat lactate decreased to 4 Elevated lactate is possibly due to albuterol inhalations Respiratory: Acute severe asthma: Currently intubated on ventilator support. On pressure control mode FiO2 decreased from 70% to 50% saturating 100% Currently on PC mode 25/5 pulling volumes around 500 cc, rate 26 per minute Bronchodilators to improve minute ventilation, will add Solu-Medrol 40 q.8h. Will repeat an ABG and readjust ventilator settings accordingly Ventilator management bundle Had an elevation>30%, chlorhexidine mouthwash, daily X awakening trials, daily spontaneous breathing trials GI: No issues We will start her on tube feeds Renal: Normal renal function Monitor I's and O's Hematology: WBC and hemoglobin both are increased possibly due to volume contraction versus smoking Infectious disease: Chest x-ray clear, COVID and flu negative Will empirically start on ceftriaxone azithromycin for the management of acute severe asthma Endocrinology: Blood sugars high Will start on sliding scale insulin Urine sugar greater than 1000, we will get hemoglobin A1c Lines: Peripheral Prophylaxis: Enoxaparin and Lovenox Total time managing care of this patient today: 65 minutes.
[2024-03-11 17:01] LABS: Reflex Lactate? 2 Y
[2024-03-11] MEDS: dexmedeTOMIDidine HCL/NS 400 MCG/100 ML INFUS..BTL 30.15 MCG IVCONT ×3 (17:08→23:17)
[2024-03-11] MEDS: cefTRIAXone sodium 2 GM in 0.9 % Sodium Chloride 50 ML IV (17:12)
[2024-03-11] MEDS: Azithromycin 500 MG in 0.9 % Sodium Chloride 250 ML 125 MG IV (17:14)
[2024-03-11 17:26] LABS: Glucose, Whole Blood 278 mg/dL (60-115)
[2024-03-11 17:38] LABS: ~Lactic Acid-LAB USE ONLY 4.7 mmol/L (0.5-2.0)
[2024-03-11 17:42] LABS: Estimated Average Glucose 151 mg/dL; Hemoglobin A1C 174.4235 umol/L; Hemoglobin A1c % 6.9 % (<6.0)
[2024-03-11] MEDS: Insulin Lispro 100 UNIT/ML 3 ML VIAL SUBCUT (17:46)
[2024-03-11 19:03] LABS: Prothrombin Time 12.2 SEC (11.1-13.3)
[2024-03-11 19:06] LABS: Partial Thromboplastin Time 29.1 SEC (26.0-36.8)
[2024-03-11] MEDS: fentaNYL citrate/NS 1,000 MCG/100 ML PLAST..BAG 15 MCG IVCONT (19:09)
[2024-03-11 19:56] LABS: VBG Base Excess -6.2 mmol/L; VBG HCO3 17 mmol/L (22-26); VBG pCO2 28 mmHg; VBG pH 7.38 (7.32-7.43); VBG pO2 81 mmHg
[2024-03-11] MEDS: Enoxaparin Sodium 80 MG/0.8 ML SYRINGE SUBCUT (20:01)
[2024-03-11] MEDS: Albuterol/Iprat 2.5/0.5MG 3 ML AMPUL.NEB INHALE (20:25)
[2024-03-11 20:27] LABS: Alanine Aminotransferase 31 U/L (0-31); Albumin Level 4.1 g/dL (3.5-5.0); Alkaline Phosphatase 55 U/L (39-117); Anion Gap 16 (12-20); Aspartate Amino Transferase 40 U/L (5-31); Bilirubin Total 0.3 mg/dL (0.0-1.0); Blood Urea Nitrogen 14 mg/dL (9-16); Calcium 7.9 mg/dL (8.4-10.2); Carbon Dioxide 20 mmol/L (22-29); Chloride 106 mmol/L (96-108); Creatinine Clr Calc Pharmacy 95.4; Estimated Glomerular Filt Rate > 60; Glucose Random 254 mg/dL (60-115); Potassium 3.5 mmol/L (3.3-5.1); Sodium 138 mmol/L (135-145); Total Protein 7.1 g/dL (6.5-8.0)
[2024-03-11] MEDS: methylPREDNISolone Sod Succ 40 MG/ML VIAL IVPUSH (21:14)
[2024-03-11] MEDS: Famotidine/PF 20 MG/2 ML VIAL IVPUSH (21:14)
[2024-03-11] MEDS: Potassium Chloride Packet 20 MEQ PACKET 40 MEQ PO (21:14)
[2024-03-11 21:24] LABS: ABG Refer to POC result
[2024-03-11 21:26] LABS: Venous Blood Gas Refer to POC result
[2024-03-11] MEDS: Sodium Bicarbonate 8.4% 50 MEQ/50 ML VIAL 100 MEQ IVPUSH (22:00)
[2024-03-11] MEDS: Calcium Gluconate/NaCl,Iso-Osm 1 GM/50 ML PLAST..BAG IV (22:01)
[2024-03-11 23:35] LABS: D Dimer High Sensitivity 338 NG/ML
[2024-03-11 23:54] LABS: Glucose, Whole Blood 223 mg/dL (60-115)
[2024-03-12] VITALS (35 sets, daily range): BP systolic 100–152; BP diastolic 55–86; PULSE 87–110; RESP 8–24; TEMP 33.3–38.6; O2SAT 90–99; BMI 33.5
[2024-03-12] MEDS: lisinopriL 5 MG TABLET PO ×2 (00:01→08:11)
[2024-03-12] MEDS: Insulin Lispro 100 UNIT/ML 3 ML VIAL SUBCUT ×3 (00:01→11:36)
[2024-03-12] MEDS: Albuterol/Iprat 2.5/0.5MG 3 ML AMPUL.NEB INHALE ×6 (00:33→20:18)
[2024-03-12] MEDS: fentaNYL citrate/NS 1,000 MCG/100 ML PLAST..BAG 15 MCG IVCONT ×3 (01:47→11:37)
[2024-03-12] MEDS: dexmedeTOMIDidine HCL/NS 400 MCG/100 ML INFUS..BTL 30.15 MCG IVCONT ×4 (02:15→12:15)
[2024-03-12] MEDS: methylPREDNISolone Sod Succ 40 MG/ML VIAL IVPUSH ×3 (04:31→21:21)
[2024-03-12] MEDS: Acetaminophen 325 MG TABLET 650 MG PO (05:18)
[2024-03-12 05:58] LABS: Glucose, Whole Blood 219 mg/dL (60-115)
[2024-03-12 06:11] LABS: VBG HCO3 22 mmol/L (22-26); VBG pCO2 35 mmHg; VBG pH 7.41 (7.32-7.43); VBG pO2 73 mmHg
[2024-03-12 06:17] LABS: MANUAL DIFF FLAG NO
[2024-03-12 06:18] LABS: Basophils Percent Auto 0.1 % (0-2); Hematocrit 37.1 % (37.0-47.0); Hemoglobin 12.6 g/dl (12.0-16.0); Imm Gran Abs Auto 0.08 X10*3/uL (0.00-0.03); Imm Gran Pct Auto 0.5 % (0.0-0.4); Lymphocytes Absolute Auto 0.9 X10*3/uL (1.2-4.9); Lymphocytes Percent Auto 6.3 % (20-40); Mean Corpuscular Hemoglobin 29.4 pg (27.0-33.0); Mean Corpuscular Volume 86.5 fL (80.0-98.0); Mean Platelet Volume 8.9 fL (9.4-12.3); Monocytes Absolute Auto 0.8 X10*3/uL (0.1-1.2); Monocytes Percent Auto 5.1 % (2-11); Platelet Count 373 X10*3/uL (160-400); Red Blood Count 4.29 X10*6/uL (4.20-5.50); Red Cell Distribution Width 12.3 % (11.0-16.0); White Blood Count 14.8 X10*3/uL (4.8-10.8)
[2024-03-12 06:19] LABS: Venous Blood Gas Refer to POC result
[2024-03-12] MEDS: Enoxaparin Sodium 80 MG/0.8 ML SYRINGE SUBCUT ×2 (06:24→19:45)
[2024-03-12] MEDS: 0.9 % Sodium Chloride 1,000 ML 100 ML IVCONT (06:32)
[2024-03-12 06:41] LABS: Alanine Aminotransferase 26 U/L (0-31); Albumin Level 3.8 g/dL (3.5-5.0); Alkaline Phosphatase 50 U/L (39-117); Anion Gap 14 (12-20); Aspartate Amino Transferase 22 U/L (5-31); Bilirubin Total 0.3 mg/dL (0.0-1.0); Blood Urea Nitrogen 15 mg/dL (9-16); Carbon Dioxide 22 mmol/L (22-29); Chloride 107 mmol/L (96-108); Creatinine Clr Calc Pharmacy 107.3; Estimated Glomerular Filt Rate > 60; Glucose Random 210 mg/dL (60-115); Magnesium 2.1 mg/dL (1.6-2.6); Phosphorus 2.7 mg/dL (2.7-4.5); Potassium 3.8 mmol/L (3.3-5.1); Sodium 139 mmol/L (135-145); Total Protein 6.6 g/dL (6.5-8.0)
[2024-03-12] MEDS: Famotidine/PF 20 MG/2 ML VIAL IVPUSH ×2 (08:11→21:21)
[2024-03-12] MEDS: Chlorhexidine Gluc Oral Rinse 15 ML MOUTHWASH BUCCAL (08:11)
--- NOTE | 2024-03-12 09:00 | PM.CCPN ---
Subjective Subjective Date of Service: 03/12/24 Interval History: Critically ill, on ventilator support this morning Severely agitated on Versed drips and Precedex drip Febrile to 101F Critical Care Time (minutes): 45 Physical Exam Vital Signs: Vital Signs: Last Vital Signs Temp 101.1 F H 03/12/24 08:00 Pulse 109 H 03/12/24 08:00 Resp 16 03/12/24 08:00 BP 135/76 03/12/24 08:11 Pulse Ox 96 03/12/24 08:00 O2 Del Method Mechanical Ventil ation 03/12/24 08:00 FiO2 35 03/12/24 08:00 BMI result Body Mass Index 33.5 HEENT: Head: Yes normal to inspection and Yes No palpable skull fracture present Eyes: General: appearance normal, both eyes and all related structures Alignment and Position: alignment normal Resp: Other: Bilateral air entry significantly improved when compared to yesterday, no crackles heard, minimal wheeze. ET tube in place Cardio: Other: Normal S1-S2 normal S1-S2 heard, no murmur GI: Other: Soft, nontender, no organomegaly Neuro: Other: Severely agitated, need sedation. No focal deficit Extrem: Other: No skin breakdown Objective Data Labs 03/12/24 05:39 03/12/24 05:39 Labs: Laboratory Results - last 24 hr 03/11/24 03/11/24 03/11/24 12:16 12:21 12:27 WBC 13.9 H RBC 4.47 Hgb 13.2 Hct 41.1 MCV 91.9 MCH 29.5 MCHC 32.1 RDW 12.0 Plt Count 434 H MPV 9.0 L Immature Gran % (Auto) 1.7 H Neut % (Auto) 38.4 L Lymph % (Auto) 49.9 H [place] % (Auto) 6.8 Eos % (Auto) 2.8 Baso % (Auto) 0.4 Lymph # (Auto) 6.9 H [place] # (Auto) 0.9 Eos # (Auto) 0.4 Baso # (Auto) 0.1 Abs Immat Gran (auto) 0.23 H Absolute Neuts (auto) 5.3 Absolute Nucleated RBC 0.000 Nucleated RBC % (auto) 0.0 Smear Tech's Comments VERIFIED PT 12.7 INR 1.0 APTT D-Dimer High Sensitivty O2 Saturation ABG pH at Pt Temp ABG pCO2 at Pt Temp ABG pO2 at Pt Temp ABG HCO3 ABG Base Excess (Actual) VBG pH 6.81 L* VBG pCO2 93 VBG pO2 138 VBG HCO3 15 L VBG O2 Saturation 97.0 VBG Base Excess -20.6 Sodium 139 Potassium 3.0 L Chloride 105 Carbon Dioxide 15 L Anion Gap 22 H BUN 13 Creatinine 0.91 Estim Creat Clear Calc 77.4 Estimated GFR > 60 POC Glucose 304 H Random Glucose 347 H Estimat Average Glucose Hemoglobin A1c % Lactic Acid 12.7 H* Lactic Acid F/U @ 2Hr Lactic Acid F/U @ 4Hr Calcium 8.9 Phosphorus Magnesium 3.2 H Total Bilirubin 0.3 Direct Bilirubin 0.1 AST 26 ALT 19 Alkaline Phosphatase 48 Troponin I High Sens < 2.7 B-Natriuretic Peptide 43 Total Protein 6.8 Albumin 3.8 Lipase 40 Procalcitonin < 0.02 TSH 7.71 H Free T4 0.76 Beta HCG, Quant < 2 Urine Color Urine Appearance Urine pH Ur Specific [place] Urine Protein Urine Glucose (UA) Urine Ketones Urine Blood Urine Nitrite Ur Leukocyte Esterase Urine RBC Urine WBC Ur Squamous Epith Cells Urine Bacteria Hyaline Casts Urine Opiates Screen Ur Buprenorphine Scrn Ur Oxycodone Screen Urine Methadone Screen Urine Fentanyl Screen Ur Barbiturates Screen Ur Phencyclidine Scrn Ur Amphetamines Screen U Benzodiazepines Scrn Urine Cocaine Screen U Marijuana (THC) Screen Ethyl Alcohol < 10 Influenza Type A (PCR) Influenza Type B (PCR) RSV RNA Qual (PCR) SARS-CoV-2 RNA (RT-PCR) 03/11/24 03/11/24 03/11/24 12:40 12:48 14:03 WBC RBC Hgb Hct MCV MCH MCHC RDW Plt Count MPV Immature Gran % (Auto) Neut % (Auto) Lymph % (Auto) [place] % (Auto) Eos % (Auto) Baso % (Auto) Lymph # (Auto) [place] # (Auto) Eos # (Auto) Baso # (Auto) Abs Immat Gran (auto) Absolute Neuts (auto) Absolute Nucleated RBC Nucleated RBC % (auto) Smear Tech's Comments PT INR APTT D-Dimer High Sensitivty O2 Saturation 98.0 ABG pH at Pt Temp 7.29 L ABG pCO2 at Pt Temp 47 H ABG pO2 at Pt Temp 119 H ABG HCO3 22 ABG Base Excess (Actual) -3.9 VBG pH VBG pCO2 VBG pO2 VBG HCO3 VBG O2 Saturation VBG Base Excess Sodium Potassium Chloride Carbon Dioxide Anion Gap BUN Creatinine Estim Creat Clear Calc Estimated GFR POC Glucose Random Glucose Estimat Average Glucose Hemoglobin A1c % Lactic Acid Lactic Acid F/U @ 2Hr Lactic Acid F/U @ 4Hr Calcium Phosphorus Magnesium Total Bilirubin Direct Bilirubin AST ALT Alkaline Phosphatase Troponin I High Sens B-Natriuretic Peptide Total Protein Albumin Lipase Procalcitonin TSH Free T4 Beta HCG, Quant Urine Color Yellow Urine Appearance Clear Urine pH 6.0 Ur Specific [place] 1.010 Urine Protein 300 (3+) H Urine Glucose (UA) >=1000 H Urine Ketones Negative Urine Blood Small (1+) H Urine Nitrite Negative Ur Leukocyte Esterase Negative Urine RBC 3-5 H Urine WBC 6-10 H Ur Squamous Epith Cells 0-2 Urine Bacteria Trace Hyaline Casts 0-2 Urine Opiates Screen Not Detected Ur Buprenorphine Scrn Not Detected Ur Oxycodone Screen Not Detected Urine Methadone Screen Not Detected Urine Fentanyl Screen Not Detected Ur Barbiturates Screen Not Detected Ur Phencyclidine Scrn Not Detected Ur Amphetamines Screen Not Detected U Benzodiazepines Scrn Not Detected Urine Cocaine Screen Not Detected U Marijuana (THC) Screen POSITIVE H Ethyl Alcohol Influenza Type A (PCR) NEGATIVE Influenza Type B (PCR) NEGATIVE RSV RNA Qual (PCR) NEGATIVE SARS-CoV-2 RNA (RT-PCR) NEGATIVE 03/11/24 03/11/24 03/11/24 14:57 14:58 17:18 WBC RBC Hgb Hct MCV MCH MCHC RDW Plt Count MPV Immature Gran % (Auto) Neut % (Auto) Lymph % (Auto) [place] % (Auto) Eos % (Auto) Baso % (Auto) Lymph # (Auto) [place] # (Auto) Eos # (Auto) Baso # (Auto) Abs Immat Gran (auto) Absolute Neuts (auto) Absolute Nucleated RBC Nucleated RBC % (auto) Smear Tech's Comments PT INR APTT D-Dimer High Sensitivty O2 Saturation ABG pH at Pt Temp ABG pCO2 at Pt Temp ABG pO2 at Pt Temp ABG HCO3 ABG Base Excess (Actual) VBG pH VBG pCO2 VBG pO2 VBG HCO3 VBG O2 Saturation VBG Base Excess Sodium Potassium Chloride Carbon Dioxide Anion Gap BUN Creatinine Estim Creat Clear Calc Estimated GFR POC Glucose Random Glucose Estimat Average Glucose 151 Hemoglobin A1c % 6.9 H Lactic Acid Lactic Acid F/U @ 2Hr 4.1 H* Lactic Acid F/U @ 4Hr 4.7 H* Calcium Phosphorus 5.3 H Magnesium Total Bilirubin Direct Bilirubin AST ALT Alkaline Phosphatase Troponin I High Sens B-Natriuretic Peptide Total Protein Albumin Lipase Procalcitonin TSH Free T4 Beta HCG, Quant Urine Color Urine Appearance Urine pH Ur Specific [place] Urine Protein Urine Glucose (UA) Urine Ketones Urine Blood Urine Nitrite Ur Leukocyte Esterase Urine RBC Urine WBC Ur Squamous Epith Cells Urine Bacteria Hyaline Casts Urine Opiates Screen Ur Buprenorphine Scrn Ur Oxycodone Screen Urine Methadone Screen Urine Fentanyl Screen Ur Barbiturates Screen Ur Phencyclidine Scrn Ur Amphetamines Screen U Benzodiazepines Scrn Urine Cocaine Screen U Marijuana (THC) Screen Ethyl Alcohol Influenza Type A (PCR) Influenza Type B (PCR) RSV RNA Qual (PCR) SARS-CoV-2 RNA (RT-PCR) 03/11/24 03/11/24 03/11/24 17:19 18:39 19:49 WBC RBC Hgb Hct MCV MCH MCHC RDW Plt Count MPV Immature Gran % (Auto) Neut % (Auto) Lymph % (Auto) [place] % (Auto) Eos % (Auto) Baso % (Auto) Lymph # (Auto) [place] # (Auto) Eos # (Auto) Baso # (Auto) Abs Immat Gran (auto) Absolute Neuts (auto) Absolute Nucleated RBC Nucleated RBC % (auto) Smear Tech's Comments PT 12.2 INR 1.0 APTT 29.1 D-Dimer High Sensitivty 338 O2 Saturation ABG pH at Pt Temp ABG pCO2 at Pt Temp ABG pO2 at Pt Temp ABG HCO3 ABG Base Excess (Actual) VBG pH 7.38 VBG pCO2 28 VBG pO2 81 VBG HCO3 17 L VBG O2 Saturation 96.0 VBG Base Excess -6.2 Sodium Potassium Chloride Carbon Dioxide Anion Gap BUN Creatinine Estim Creat Clear Calc Estimated GFR POC Glucose 278 H Random Glucose Estimat Average Glucose Hemoglobin A1c % Lactic Acid Lactic Acid F/U @ 2Hr Lactic Acid F/U @ 4Hr Calcium Phosphorus Magnesium Total Bilirubin Direct Bilirubin AST ALT Alkaline Phosphatase Troponin I High Sens B-Natriuretic Peptide Total Protein Albumin Lipase Procalcitonin TSH Free T4 Beta HCG, Quant Urine Color Urine Appearance Urine pH Ur Specific [place] Urine Protein Urine Glucose (UA) Urine Ketones Urine Blood Urine Nitrite Ur Leukocyte Esterase Urine RBC Urine WBC Ur Squamous Epith Cells Urine Bacteria Hyaline Casts Urine Opiates Screen Ur Buprenorphine Scrn Ur Oxycodone Screen Urine Methadone Screen Urine Fentanyl Screen Ur Barbiturates Screen Ur Phencyclidine Scrn Ur Amphetamines Screen U Benzodiazepines Scrn Urine Cocaine Screen U Marijuana (THC) Screen Ethyl Alcohol Influenza Type A (PCR) Influenza Type B (PCR) RSV RNA Qual (PCR) SARS-CoV-2 RNA (RT-PCR) 03/11/24 03/11/24 03/12/24 19:52 23:46 05:39 WBC 14.8 H RBC 4.29 Hgb 12.6 Hct 37.1 MCV 86.5 D MCH 29.4 MCHC 34.0 RDW 12.3 Plt Count 373 MPV 8.9 L Immature Gran % (Auto) 0.5 H Neut % (Auto) 88.0 H Lymph % (Auto) 6.3 L [place] % (Auto) 5.1 Eos % (Auto) 0.0 Baso % (Auto) 0.1 Lymph # (Auto) 0.9 L [place] # (Auto) 0.8 Eos # (Auto) 0.0 Baso # (Auto) 0.0 Abs Immat Gran (auto) 0.08 H Absolute Neuts (auto) 13.0 H Absolute Nucleated RBC 0.000 Nucleated RBC % (auto) 0.0 Smear Tech's Comments PT INR APTT D-Dimer High Sensitivty O2 Saturation ABG pH at Pt Temp ABG pCO2 at Pt Temp ABG pO2 at Pt Temp ABG HCO3 ABG Base Excess (Actual) VBG pH VBG pCO2 VBG pO2 VBG HCO3 VBG O2 Saturation VBG Base Excess Sodium 138 139 Potassium 3.5 3.8 Chloride 106 107 Carbon Dioxide 20 L 22 Anion Gap 16 14 BUN 14 15 Creatinine 0.74 0.70 Estim Creat Clear Calc 95.4 107.3 Estimated GFR > 60 > 60 POC Glucose 223 H Random Glucose 254 H 210 H Estimat Average Glucose Hemoglobin A1c % Lactic Acid Lactic Acid F/U @ 2Hr Lactic Acid F/U @ 4Hr Calcium 7.9 L D 8.0 L Phosphorus 2.7 Magnesium 2.1 Total Bilirubin 0.3 0.3 Direct Bilirubin AST 40 H 22 ALT 31 26 Alkaline Phosphatase 55 50 Troponin I High Sens B-Natriuretic Peptide Total Protein 7.1 6.6 Albumin 4.1 3.8 Lipase Procalcitonin TSH Free T4 Beta HCG, Quant Urine Color Urine Appearance Urine pH Ur Specific [place] Urine Protein Urine Glucose (UA) Urine Ketones Urine Blood Urine Nitrite Ur Leukocyte Esterase Urine RBC Urine WBC Ur Squamous Epith Cells Urine Bacteria Hyaline Casts Urine Opiates Screen Ur Buprenorphine Scrn Ur Oxycodone Screen Urine Methadone Screen Urine Fentanyl Screen Ur Barbiturates Screen Ur Phencyclidine Scrn Ur Amphetamines Screen U Benzodiazepines Scrn Urine Cocaine Screen U Marijuana (THC) Screen Ethyl Alcohol Influenza Type A (PCR) Influenza Type B (PCR) RSV RNA Qual (PCR) SARS-CoV-2 RNA (RT-PCR) 03/12/24 03/12/24 05:51 06:04 WBC RBC Hgb Hct MCV MCH MCHC RDW Plt Count MPV Immature Gran % (Auto) Neut % (Auto) Lymph % (Auto) [place] % (Auto) Eos % (Auto) Baso % (Auto) Lymph # (Auto) [place] # (Auto) Eos # (Auto) Baso # (Auto) Abs Immat Gran (auto) Absolute Neuts (auto) Absolute Nucleated RBC Nucleated RBC % (auto) Smear Tech's Comments PT INR APTT D-Dimer High Sensitivty O2 Saturation ABG pH at Pt Temp ABG pCO2 at Pt Temp ABG pO2 at Pt Temp ABG HCO3 ABG Base Excess (Actual) VBG pH 7.41 VBG pCO2 35 VBG pO2 73 VBG HCO3 22 VBG O2 Saturation 96.0 VBG Base Excess -1.0 Sodium Potassium Chloride Carbon Dioxide Anion Gap BUN Creatinine Estim Creat Clear Calc Estimated GFR POC Glucose 219 H Random Glucose Estimat Average Glucose Hemoglobin A1c % Lactic Acid Lactic Acid F/U @ 2Hr Lactic Acid F/U @ 4Hr Calcium Phosphorus Magnesium Total Bilirubin Direct Bilirubin AST ALT Alkaline Phosphatase Troponin I High Sens B-Natriuretic Peptide Total Protein Albumin Lipase Procalcitonin TSH Free T4 Beta HCG, Quant Urine Color Urine Appearance Urine pH Ur Specific [place] Urine Protein Urine Glucose (UA) Urine Ketones Urine Blood Urine Nitrite Ur Leukocyte Esterase Urine RBC Urine WBC Ur Squamous Epith Cells Urine Bacteria Hyaline Casts Urine Opiates Screen Ur Buprenorphine Scrn Ur Oxycodone Screen Urine Methadone Screen Urine Fentanyl Screen Ur Barbiturates Screen Ur Phencyclidine Scrn Ur Amphetamines Screen U Benzodiazepines Scrn Urine Cocaine Screen U Marijuana (THC) Screen Ethyl Alcohol Influenza Type A (PCR) Influenza Type B (PCR) RSV RNA Qual (PCR) SARS-CoV-2 RNA (RT-PCR) Progress Note: A&P Assessment and plan (1) Respiratory failure with hypoxia and hypercapnia: Start date: 03/11/24 Status: Acute (2) Acute severe asthma: Start date: 03/11/24 Status: Acute (3) Depression: Status: Acute (4) Acidosis, lactic: Start date: 03/11/24 Status: Acute (5) Pulmonary embolism: Start date: 03/11/24 Status: Acute Plan Rosa Strange is a 49-year-old lady with past medical history of asthma, sleep apnea, depression presents to the ED with Worsening respiratory symptoms for the past 2 weeks and went into respiratory arrest and severe hypoxia for about 30 minutes prior to arrival to ED which she needed to to be intubated placed on ventilator support for the management of acute severe asthma. She is also found to have a small right upper lobe pulmonary embolism possibly from her recent travel to [place]. Neuro: CT brain did not show any acute intracranial pathology Patient was initially placed on propofol drip but was very aggressive and also dropped her blood pressure is so switched to Versed and Precedex. Continue Precedex, and versed; will taper versed after adding Zyprexa. ICU delirium precautions Cardiology: Blood pressure is okay, not on any vasopressor support Lactic acidosis: Presented with lactate over 10, repeat lactate decreased to 4. Elevated lactate is possibly due to albuterol inhalations. We will repeat the lactate again today Respiratory: Acute severe asthma: Currently intubated on ventilator support. On pressure control mode FiO2 from 50% saturating 100% Currently on PC mode 25/5 good volumes, no volume restriction Bronchodilators to improve minute ventilation, continue Solu-Medrol 40 q.8h. Ventilator management bundle Had an elevation>30%, chlorhexidine mouthwash, daily X awakening trials, daily spontaneous breathing trials Acute pulmonary embolism: CTA chest done yesterday was a suboptimal study showed small pulmonary embolism in right upper lobe, no embolus noted in main pulmonary arteries or trunk We will get Dopplers of the lower extremity and TTE to rule out right heart strain although the clot burden is very small Started the patient on therapeutic dose Lovenox GI: No issues We will start her on tube feeds today Renal: Normal renal function Monitor I's and O's Hematology: WBC and hemoglobin both are increased Infectious disease: Chest x-ray clear, COVID and flu negative; had some aspiration will repeat CXR today continue on ceftriaxone azithromycin for the management of acute severe asthma Endocrinology: Blood sugars high, hemoglobin A1c 6.9 on sliding scale insulin Urine sugar greater than 1000, Lines: Peripheral will take off [place] catheter and switch to [place] Prophylaxis: Enoxaparin and Famotidine Quality Stroke Does the patient have a stroke diagnosis?: No VTE Prior VTE?: No VTE Risk Level:: Medical - low VTE Device Contraindication: Treatment Not Indicated VTE Drug Contraindication: N/A - Med Ordered
--- NOTE | 2024-03-12 10:09 | MHC.CM.PN ---
Addendum entered by Joselin Burnette RN 03/12/24 10:41: CM CONTACTED MEDICAL RECORDS AT [facility] AND [facility], NO HCP ON FILE, CM WILL REVISIT W/PT ONCE EXTUBATED AND A&O TO OFFER TO COMPLETE. Original Note: EMR REVIEWED, PT W/ACUTE HYPOXIC RESP FAILURE NOW W/MECHANICAL VENT, CM ATTEMPTED TO CONTACT PT'S [facility] AT 10:10AM [phone], NO ANSWER AND DETAILED MESSAGE LEFT W/REQUEST FOR CALL BACK AND [facility] DID CALL BACK AFTER CM STARTED THIS NOTE. PER ESCOB[facility] PT LIVES W/HIM, IS FULLY INDEP W/ALL CARE, [facility] DENIES PT USES DME OTHER THAN AN ASTHMA PUMP AND BELIEVES HER PCP IS CAROLINA BRUCE HOWEVER MAY HAVE CHANGED, [facility] ALSO REPORTS PT HAS HAD MULTIPLE ADMITS AT [facility] AND [facility], CM WILL CONTACT FOR HCP. [facility]OB[facility] REPORTS PT WOULD BE OPEN TO HOME SERVICES/STR IF NEEDED ON DC.
[2024-03-12] MEDS: OLANZapine 10 MG VIAL IM (10:58)
[2024-03-12 11:30] LABS: Glucose, Whole Blood 180 mg/dL (60-115)
--- NOTE | 2024-03-12 11:59 | MHC.CLN ---
PT MAY REQUIRE TF FOR NUTRITION SUPPORT R/T PROLONGED NPO STATUS PT IS CURRENTLY INTUBATED AND SEDATED RECOMMEND TF JEVITY 1.0 AT MAX GOAL RATE 60ML/HR WITH 30ML PROSOURCE Q DAY WITH 240ML FREE WATER FLUSHES Q 6 HRS TO PROVIDE 1586KCALS TOTAL (23KCALS/KG), 79G TOTAL PROTEIN (1.1G/KG), 2162ML TOTAL WATER FROM FORMULA AND FLUSHES (32ML/KG) START TF AT 20ML/HR AND INCREASE BY 10ML Q 4 HRS UNTIL MAX GOAL IS ACHIEVED MONITOR TOLERANCE, RESIDUALS AND LYTES SEE ALSO FULL CLINICAL NUTRITION ASSESSMENT
--- NOTE | 2024-03-12 14:26 | PC.NURSE ---
At 1400, pt sitting upright in bed attempting to remove airway. Upon assessment, pt able to follow commands, answer questions with nods and write on a clipboard. MD decided to extubate. Extubation performed with MD and RT at bedside at 1410. Oral suction provided and pt placed in bipap at 10/5.
[2024-03-12] MEDS: cefTRIAXone sodium 2 GM in 0.9 % Sodium Chloride 50 ML IV (15:58)
[2024-03-12] MEDS: Azithromycin 500 MG in 0.9 % Sodium Chloride 250 ML 125 MG IV (16:11)
[2024-03-12 16:18] LABS: Lactic Acid 1.3 mmol/L (0.5-2.0)
--- NOTE | 2024-03-12 17:00 | CA_ITS ---
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 The visually estimated ejection fraction is between 60-65%. Spectral Doppler is indicative of a normal filling pattern. Right Ventricle Normal right ventricular cavity size and systolic function. Atria Both atria are normal in size. There is no evidence of interatrial shunt. Aortic Valve Normal aortic valve structure and function. There is no aortic valve stenosis. There is no aortic valve regurgitation. Mitral Valve Normal mitral valve structure and function. There is trace mitral valve regurgitation. There is no mitral valve stenosis. Pulmonic Valve The pulmonic valve is likely normal. There is trace pulmonic valve regurgitation. Tricuspid Valve Normal tricuspid valve structure. There is trace tricuspid valve regurgitation. The right ventricular systolic pressure is normal. Great Vessels All visible segments of the aorta are normal in size. The pulmonary artery was not well visualized. Venous The inferior vena cava is normal in size and collapses greater than 50% with inspiration. Pericardium/Pleural There is no evidence of pericardial effusion. Prior Study Comparison No prior study available for comparison. Measurements 2D Linear Measurements RVIDd: 3.61 RVIDd Index: 1.82 IVSd: 1.02 0.6-0.9/0.6-1.0 cm LVIDd: 4.18 3.9-5.3/4.2-5.9 cm LVIDd Index: 2.11 2.4-3.2/2.2-3.1 cm/m2 LVIDs: 2.59 2.0-3.6 cm LVPWd: 1.09 0.7-1.1 cm Ao Root: 2.80 2.1-3.5 cm LA Diam: 3.20 2.7-3.8/3.0-4.0 cm LAIDs Index: 1.62 1.5-2.3 cm/m2 LV Mass: 182.86 67-162/88-224 g LV Mass Index: 92.35 43-95/49-115 g/m2 LVOT Diam: 2.30 3.0+(-)1.3 cm Mitral Valve MV Pk E: 1.09 MV PK A: 0.90 MV Decel Time: 96.00 E/A: 1.20 E'Lateral: 11.50 E'Medial: 8.59 E/E' Med: 12.70 E/E' Lat: 9.50 PHT: 28.00 MVA PHT: 7.86 Decel [place]: 11.36 Aortic Valve AoV Pk [place]: 1.44 AoV Mn Delgado: 1.00 AoV VTI: 0.30 AoV Pk Grad: 8.00 Aov Mn Grad: 5.00 CALLY Cont.VTI: 2.88 LVOT LVOT Pk [place]: 1.05 LVOT Mn [place]: 0.68 LVOT VTI: 0.21 LVOT Pk Grad: 4.00 LVOT Mn Grad: 2.00 LVOT Diam: 2.30 LVOT Area: 4.15 Diastolic Function MV Pk E: 1.09 MV Pk A: 0.90 E/A: 1.20 E'Medial: 8.59 E/E' Med: 12.70 E' Laterial: 11.50 E/E' Lat: 9.50 Right Ventricle TAPSE (mm): 28.00 TVS' [place]gado: 14.00 Tricuspid Valve TR Pk [place]: 1.89 TR Pk Grad: 14.00 RA Press: 3.00 RVSP: 17.00 Great Vessels Aorta Ao Root-2D: 2.80 2.0-3.7 cm Ao Asc: 2.80 2.1-3.4 cm Pulmonary Valve PV Pk [place]: 1.13 Peak PV Grad: 5.00 Updated in Other Vendor System with Status of Final Edd Aleman MD electronically signed on 03/13/2024 8:40:09 AM with status of Final
[2024-03-12 18:12] LABS: Glucose, Whole Blood 206 mg/dL (60-115)
[2024-03-12 18:19] LABS: Creatinine Urine 142.03 mg/dL; Total Protein Urine Random 30 mg/dL (<12)
[2024-03-12 20:03] LABS: INTERNATIONAL NORM RATIO 1.2 (0.9-1.1); Prothrombin Time 14.7 SEC (11.1-13.3)
[2024-03-12 23:53] LABS: Glucose, Whole Blood 209 mg/dL (60-115)
[2024-03-13] VITALS (20 sets, daily range): BP systolic 113–169; BP diastolic 60–88; PULSE 2–113; RESP 11–23; TEMP 36.4–37.2; O2SAT 96–100
[2024-03-13] MEDS: Albuterol/Iprat 2.5/0.5MG 3 ML AMPUL.NEB INHALE ×7 (00:18→23:47)
[2024-03-13] MEDS: Acetaminophen 325 MG TABLET 650 MG PO ×2 (01:40→19:11)
[2024-03-13] MEDS: methylPREDNISolone Sod Succ 40 MG/ML VIAL IVPUSH ×3 (04:48→21:05)
--- NOTE | 2024-03-13 05:28 | PM.CCN ---
Critical Care Event Note Summary Date of Service: 03/13/24 Code activated: No Narrative: This case had a high probability of a clinically significant, sudden, or life threatening deterioration of this patient's condition which required my full and direct attention, intervention and personal management. Critical Care Time (minutes): 15 Comment: Patient has underlying history of asthma and was admitted with hypoxic respiratory failure in the setting of an asthma exacerbation who vapes THC related products in the past has been a smoker. Patient was extubated successfully about 20 hours ago, throughout the day of yesterday, evening and overnight has had no events, complaints or issues. Patient is eager to be able to get up and walk around, take a shower and eventually go home. I had a lengthy discussion with the patient regards to vaping and smoking cigarettes, she states that she will quit now as she has done this in the past. The patient is hemodynamically stable and has labs pending. I do not think the patient needs to be in the ICU anymore, certainly we can follow along answer any questions or help with any further treatment if necessary. The patient will be transferred to the next level of care (telemetry), case discussed in detail with Dr. Fuller (Internal Medicine). Dr. Harmon aware of the above, case discussed with him.
[2024-03-13 05:54] LABS: VBG Base Excess 2.6 mmol/L; VBG HCO3 23 mmol/L (22-26); VBG pCO2 27 mmHg; VBG pH 7.54 (7.32-7.43); VBG pO2 78 mmHg
[2024-03-13 06:03] LABS: Venous Blood Gas Refer to POC result
[2024-03-13 06:06] LABS: Glucose, Whole Blood 188 mg/dL (60-115)
[2024-03-13] MEDS: lisinopriL 5 MG TABLET PO (08:03)
[2024-03-13] MEDS: Famotidine/PF 20 MG/2 ML VIAL IVPUSH (08:04)
[2024-03-13] MEDS: Enoxaparin Sodium 80 MG/0.8 ML SYRINGE SUBCUT (08:04)
[2024-03-13 10:11] LABS: Hematocrit 41.8 % (37.0-47.0); Mean Corpuscular HGB Conc 33.5 g/dl (31.0-35.0); Mean Corpuscular Hemoglobin 29.9 pg (27.0-33.0); Mean Corpuscular Volume 89.1 fL (80.0-98.0); Mean Platelet Volume 10.8 fL (9.4-12.3); Platelet Count 205 X10*3/uL (160-400); Red Blood Count 4.69 X10*6/uL (4.20-5.50); Red Cell Distribution Width 13.1 % (11.0-16.0)
[2024-03-13 10:43] LABS: Procalcitonin 0.89 ng/mL
--- NOTE | 2024-03-13 11:08 | MHC.CLN ---
F/U PT EXTUBATED AND TRANSFERRED TO MEDICAL FLOOR DIET RX: [id number] RD TO FOLLOW X7 DAYS MONITOR PO INTAKE CLOSELY
[2024-03-13 11:28] LABS: Glucose, Whole Blood 270 mg/dL (60-115)
[2024-03-13] MEDS: Insulin Lispro 100 UNIT/ML 3 ML VIAL SUBCUT ×3 (11:45→21:05)
--- NOTE | 2024-03-13 13:47 | P.PNIM_ITS ---
Subjective Subjective Date of Service: 03/13/24 Interval History: extubated yesterday, currently on 2L O2 via NC. Some wheezing but dyspnea has improved Review of Systems Review of Systems: Yes all other systems are reviewed and are negative Physical Exam 2 Vital Signs: Vital Signs: Last Vital Signs Temp 97.8 F 03/13/24 11:01 Pulse 111 H 03/13/24 11:35 Resp 20 03/13/24 11:35 BP 157/78 H 03/13/24 11:01 Pulse Ox 98 03/13/24 11:01 O2 Del Method Nasal Cannula 03/13/24 11:01 O2 Flow Rate 2 03/13/24 11:01 FiO2 35 03/12/24 16:00 BMI result Body Mass Index 33.5 Gen: in no acute distress HEENT: sclera anicteric, moist mucus membranes Neck: supple Lungs: end-expiratory wheezing Heart: regular rate and rhythm, no murmurs Abd: soft, non-tender, non-distended Ext: no edema Skin: warm/well-perfused Neuro: alert and oriented x3, no focal findings Psych: appropriate affect Objective Data Active Medications Acetaminophen (Acetaminophen 325 Mg Tablet) 650 mg PO Q6H PRN PRN Reason: Fever >100.4 Last Admin: 03/13/24 01:40 Dose: 650 mg Documented By: JACOB Albuterol Sulfate (Albuterol Sulfate 2.5 Mg/0.5 Ml Vial.Neb) 2.5 mg INHALE Q2H PRN PRN Reason: whezing Albuterol/Ipratropium (Albuterol/Iprat 2.5/0.5mg 3 Ml Ampul.Neb) 3 ml INHALE RQ4H [facility] Last Admin: 03/13/24 11:34 Dose: 3 ml Documented By: MONICA Apixaban (Apixaban 5 Mg Tablet) 10 mg PO BID [facility] Stop: 03/20/24 09:01 Famotidine (Famotidine/Pf 20 Mg/2 Ml Vial) 20 mg IVPUSH BID [facility] Last Admin: 03/13/24 08:04 Dose: 20 mg Documented By: FER Glucose (Glucose Gel 15 Gm Gel..Gram.) 15 gm PO Q15M PRN; Protocol PRN Reason: per Hypoglycemia Standing Ord. Glucose (Glucose Gel 15 Gm Gel..Gram.) 15 gm PO Q15M PRN; Protocol PRN Reason: per Hypoglycemia Standing Ord. Ceftriaxone Sodium 2 gm/ (Sodium Chloride) 50 mls @ 100 mls/hr IV Q24H [facility] Last Infusion: 03/12/24 16:49 Dose: Infused Documented By: BRAULIO Azithromycin 500 mg/ Sodium (Chloride) 250 mls @ 125 mls/hr IV Q24H [facility] Last Infusion: 03/12/24 18:21 Dose: Infused Documented By: BRAULIO Dextrose (D10) 250 mls @ 750 mls/hr IV Q15M PRN; Protocol PRN Reason: per Hypoglycemia Standing Ord. Insulin Human Lispro (Insulin Lispro 100 Unit/Ml 3 Ml Vial) 0 unit SUBCUT QIDACHS [facility]; Protocol Last Admin: 03/13/24 11:45 Dose: 6 unit Documented By: FER Lisinopril (Lisinopril 5 Mg Tablet) 5 mg PO DAILY [facility]; Protocol Last Admin: 03/13/24 08:03 Dose: 5 mg Documented By: FER Methylprednisolone Sodium Succinate (Methylprednisolone Sod Succ 40 Mg/Ml Vial) 40 mg IVPUSH Q8H [facility] Last Admin: 03/13/24 11:45 Dose: 40 mg Documented By: FRE Labs 03/14/24 06:53 03/12/24 05:39 Labs: Laboratory Results - last 24 hr 03/12/24 03/12/24 03/12/24 16:02 17:40 18:08 MCV MCH MCHC RDW Plt Count MPV Absolute Nucleated RBC Nucleated RBC % (auto) PT INR VBG pH VBG pCO2 VBG pO2 VBG HCO3 VBG O2 Saturation VBG Base Excess POC Glucose 206 H Lactic Acid 1.3 Procalcitonin U Random Total Protein 30 H Urine Creatinine 142.03 03/12/24 03/12/24 03/13/24 18:37 23:46 05:46 MCV MCH MCHC RDW Plt Count MPV Absolute Nucleated RBC Nucleated RBC % (auto) PT 14.7 H D INR 1.2 H VBG pH 7.54 H VBG pCO2 27 VBG pO2 78 VBG HCO3 23 VBG O2 Saturation 98.0 VBG Base Excess 2.6 POC Glucose 209 H Lactic Acid Procalcitonin U Random Total Protein Urine Creatinine 04/03/13/24 03/13/24 06:02 09:54 11:05 MCV 89.1 MCH 29.9 MCHC 33.5 RDW 13.1 Plt Count 205 D MPV 10.8 Absolute Nucleated RBC 0.000 Nucleated RBC % (auto) 0.0 PT INR VBG pH VBG pCO2 VBG pO2 VBG HCO3 VBG O2 Saturation VBG Base Excess POC Glucose 188 H 270 H Lactic Acid Procalcitonin 0.89 U Random Total Protein Urine Creatinine Microbiology Microbiology Results: Microbiology 03/11/24 12:48 Blood Culture - Preliminary Blood - Venous No growth after 24 hours. 03/11/24 12:40 Blood Culture - Preliminary Blood - Venous No growth after 24 hours. 03/11/24 Unknown Urine Culture - Final Urine Catheterized - [place] Catheter No growth. Assessment and Plan (1) Acute severe asthma: Status: Acute Plan d3 49yo F with asthma, SILVIA, depression presenting with 2wk of progressive dyspnea, suffered hypoxic respiratory arrest and intubated in ED also found to have small RUL PE extubated on d2, stepped down to IMC d3 acute hypoxic respiratory arrest/failure due to asthma exacerbation - continue steroids, standing/prn nebs - on ceftriaxone/azithromycin, d/c once PCT <0.5 - continue Trelegy, montelukast - outpt pulm f/u lactic acidosis - resolved, was likely due to albuterol acute PE - ?provoked- recent flight to/from [place]. No R heart strain on TTE. No DVT on Dopplers. Transition from therapeutic LMWH to apixaban. Pt's mother had unprovoked DVTs; consider outpt Hematology consultation for thrombophilia testing DM2 - A1c 6.9, correction-dose lispro, d/c on metformin HTN - lisinopril, HCTZ HLD - statin, fibrate mood disorder - buspirone, sertraline VTE ppx - apixaban dispo - PT eval In my clinical judgment, the patient requires continued inpatient hospitalization for the following reasons: hypoxia Total time managing care of this patient today: 45 minutes. Quality Stroke Does the patient have a stroke diagnosis?: No VTE Prior VTE?: No VTE Risk Level:: Medical - low VTE Device Contraindication: Treatment Not Indicated VTE Drug Contraindication: N/A - Med Ordered
[2024-03-13] MEDS: cefTRIAXone sodium 2 GM in 0.9 % Sodium Chloride 50 ML IV (15:47)
[2024-03-13] MEDS: Azithromycin 500 MG in 0.9 % Sodium Chloride 250 ML 125 MG IV (15:47)
[2024-03-13] MEDS: Lidocaine 4 % Patch ADH..PATCH 1 PATCH TRANSDERMA (15:47)
[2024-03-13 16:12] LABS: Glucose, Whole Blood 232 mg/dL (60-115)
[2024-03-13 20:38] LABS: Glucose, Whole Blood 207 mg/dL (60-115)
[2024-03-13] MEDS: Apixaban 5 MG TABLET 10 MG PO (21:04)
[2024-03-14 01:40] LABS: Glucose, Whole Blood 201 mg/dL (60-115)
[2024-03-14 03:58] VITALS: BP 169/93; PULSE 102; RESP 16; TEMP 36.7; O2SAT 94
[2024-03-14] MEDS: Acetaminophen 325 MG TABLET 650 MG PO (04:01)
[2024-03-14] MEDS: methylPREDNISolone Sod Succ 40 MG/ML VIAL IVPUSH ×2 (04:03→12:17)
[2024-03-14] MEDS: Albuterol/Iprat 2.5/0.5MG 3 ML AMPUL.NEB INHALE ×3 (04:13→11:57)
[2024-03-14 04:15] VITALS: PULSE 100; RESP 18; O2SAT 95
[2024-03-14 06:09] LABS: Glucose, Whole Blood 197 mg/dL (60-115)
[2024-03-14 07:11] LABS: Hematocrit 38.6 % (37.0-47.0); Hemoglobin 13.1 g/dl (12.0-16.0); Mean Corpuscular HGB Conc 33.9 g/dl (31.0-35.0); Mean Corpuscular Hemoglobin 29.4 pg (27.0-33.0); Mean Corpuscular Volume 86.5 fL (80.0-98.0); Mean Platelet Volume 8.7 fL (9.4-12.3); Platelet Count 437 X10*3/uL (160-400); Red Blood Count 4.46 X10*6/uL (4.20-5.50); Red Cell Distribution Width 12.8 % (11.0-16.0); White Blood Count 20.2 X10*3/uL (4.8-10.8)
[2024-03-14 07:58] VITALS: BP 175/85; PULSE 100; RESP 20; TEMP 37.1; O2SAT 95
[2024-03-14] MEDS: Fluticasone/Umeclidinium/Vilanterol 100/62.5/25 BLST.W.DEV 1 PUFF INHALE (08:10)
[2024-03-14 08:12] LABS: Glucose, Whole Blood 255 mg/dL (60-115)
[2024-03-14 08:13] VITALS: PULSE 110; RESP 20; O2SAT 96
[2024-03-14 08:24] LABS: Procalcitonin 0.39 ng/mL
[2024-03-14] MEDS: busPIRone HCl 10 MG TABLET PO (08:25)
[2024-03-14] MEDS: Atorvastatin Calcium 80 MG TABLET PO (08:25)
[2024-03-14] MEDS: Lidocaine 4 % Patch ADH..PATCH 1 PATCH TRANSDERMA (08:25)
[2024-03-14] MEDS: Fenofibrate,Micronized 134 MG CAPSULE PO (08:25)
[2024-03-14] MEDS: Apixaban 5 MG TABLET 10 MG PO (08:25)
[2024-03-14] MEDS: Insulin Lispro 100 UNIT/ML 3 ML VIAL SUBCUT ×2 (08:26→12:17)
[2024-03-14] MEDS: lisinopriL 5 MG TABLET PO (08:26)
[2024-03-14] MEDS: hydroCHLOROthiazide 25 MG TABLET PO (08:26)
[2024-03-14] MEDS: oxyCODONE HCl Immed Release 5 MG TABLET PO (09:18)
--- NOTE | 2024-03-14 10:56 | W.MHC.F2F ---
Service Date Service Date: 03/14/24 Encounter Date of encounter: 03/14/24 Reasons for Services Signs and symptoms assessed: Dyspnea on Exertion, Impaired Standing Balance Reason for physical therapy: home safety and mobility, therapeutic exercises, gait/transfer training, assess need for DME, ADL training and energy conservation MD Overseeing Care: Casper Barros Homebound: Leaving the home is medically contraindicated at this time without the asist of a device and/or another person due th the listed conditions above and below. Reason homebound: shortness of breath with minimal effort and weakness related to hospital stay Homebound supporting statement: Gait Training, Stair Training, Therapeutic Activities, Therapeutic Exercise, Patient Education, Safety,Balance Certification: Based on the above findings, I certify that this patient is confined to the home and needs intermittent mcc care, physical therapy and/or speech therapy, or continues to need occupational therapy. The patient is under my care, and I have initiated the establishment of the plan of care. The patient will be followed by a physician who will periodically review the plan of care. Time Spent With Patient Time: Total time managing care of this patient today ____ minutes.
--- NOTE | 2024-03-14 11:14 | MHC.CM.PN ---
Patient has been medically cleared for dc to home today, with services. A referral was made to [facility], who has been made aware of today's dc.
--- NOTE | 2024-03-14 11:14 | PM.DS ---
DS: Providers Provider Date of Service: 03/14/24 Date of admission: 03/11/24 14:23 Primary care physician: Casper Barros MD DS: Diagnosis Discharge Diagnosis (1) Acute severe asthma: Status: Acute (2) Status asthmaticus: Status: Acute (3) Acute hypoxic respiratory failure: Status: Acute (4) Hypertension, uncontrolled: Status: Acute (5) Pulmonary embolism: Status: Acute (6) Type 2 diabetes mellitus: Status: Acute (7) Respiratory arrest: Status: Acute DS: Summary Hospital Course Hospital Course: From the history and physical by the admitting hospitalist, Luis Fernandozoila Harmon, 03/11/24: 49-year-old lady with past medical history of asthma on albuterol inhalers and nebulization as needed, obstructive sleep apnea on CPAP, depression they actually trying to come off of all her medications when to [place] and retired 2 weeks ago. Since she returned back she has been having consistently shortness of breath with cough needing more nebulizations and inhalers which is progressively worsening. denies any fever, no runny nose. This morning her shortness of breath and wheeze had worsened when the left for work. During the day patient called EMS due to worsening wheezing. When the EMS arrived patient was still awake but severely dyspneic later went into respiratory arrest without losing a pulse. She was a very difficult airway and EMS could not obtain a secured airway so was transferred to the hospital via Ambu bag ventilation. Upon arrival to the ED patient's saturation was in 20s and 30s, total time required prior to presentation to the hospital and intubation was about 30 minutes. Patient was intubated and placed on ventilator support due to severe hypoxia. MICU consulted for admission. Patient is also a smoker and has been lately using marijuana vapes 49yo F with asthma, SILVIA, and depression presenting with 2wk of progressive dyspnea. She suffered a hypoxic respiratory arrest and was intubated in the ED. She was also found to have small RUL PE. She was admitted to the ICU and mechanically ventilated. She was extubated on hospital d2 and stepped down to the telemetry unit on d3. She was treated with steroids and nebulized bronchodilators. She was weaned off supplemental oxygen to room air. She was counseled to avoid vaping. She was discharged on a prednisone taper and will need pulmonology follow-up. As for PE, this may have been provoked by a recent flight to/from [place]. No DVT on Dopplers. No strain on TTE, as expected with such a small burden of clotting. Initially treated with therapeutic LMWH, then transitioned to apixaban, which she should take for at least 3 months. Pt's mother had unprovoked DVTs; consider referral for Hematology consultation for thrombophilia testing. As for hypertension, lisinopril was added to HCTZ for improved BP control; BMP should be checked in 1 week. She was newly diagnosed with type 2 diabetes with A1c of 6.9 and discharged on metformin along with diet/exercise counseling. She was discharged home with VNA services. Time Attestation Total time managing care of this patient today: 45 mintues. Discharge Coordination Time (in mins): 45 Quality: Safe Use of Opioids Does Pt have an Active Cancer Diagnosis on the Problem List?: No Quality: Stroke Does the patient have a stroke diagnosis?: No Physical Exam Vital Signs: Vital Signs: Last Vital Signs Temp 98.8 F 03/14/24 07:58 Pulse 110 H 03/14/24 08:13 Resp 20 03/14/24 08:13 BP 175/85 H 03/14/24 07:58 Pulse Ox 95 03/14/24 07:58 O2 Del Method Room Air 03/14/24 07:58 O2 Flow Rate 2 03/13/24 11:01 FiO2 35 03/12/24 16:00 BMI result Body Mass Index 33.5 Gen: in no acute distress HEENT: sclera anicteric, moist mucus membranes Neck: supple Lungs: clear to auscultation bilaterally except for soft expiratory wheeze at R base Heart: regular rate and rhythm, no murmurs Abd: soft, non-tender, non-distended Ext: no edema Skin: warm/well-perfused Neuro: alert and oriented x3, no focal findings Psych: appropriate affect DS: Data Data Completed and Pending Completed studies during hospitalization [Text1]: Laboratory Results WBC 20.2 X10*3/uL (4.8-10.8) H 03/14/24 06:53 RBC 4.46 X10*6/uL (4.20-5.50) 03/14/24 06:53 Hgb 13.1 g/dl (12.0-16.0) 03/14/24 06:53 Hct 38.6 % (37.0-47.0) 03/14/24 06:53 MCV 86.5 fL (80.0-98.0) 03/14/24 06:53 MCH 29.4 pg (27.0-33.0) 03/14/24 06:53 MCHC 33.9 g/dl (31.0-35.0) 03/14/24 06:53 RDW 12.8 % (11.0-16.0) 03/14/24 06:53 Plt Count 437 X10*3/uL (160-400) H D 03/14/24 06:53 MPV 8.7 fL (9.4-12.3) L 03/14/24 06:53 Immature Gran % (Auto) 0.5 % (0.0-0.4) H 03/12/24 05:39 Neut % (Auto) 88.0 % (45-73) H 03/12/24 05:39 Lymph % (Auto) 6.3 % (20-40) L 03/12/24 05:39 [place] % (Auto) 5.1 % (2-11) 03/12/24 05:39 Eos % (Auto) 0.0 % (0-4) 03/12/24 05:39 Baso % (Auto) 0.1 % (0-2) 03/12/24 05:39 Lymph # (Auto) 0.9 X10*3/uL (1.2-4.9) L 03/12/24 05:39 [place] # (Auto) 0.8 X10*3/uL (0.1-1.2) 03/12/24 05:39 Eos # (Auto) 0.0 X10*3/uL (0.0-0.4) 03/12/24 05:39 Baso # (Auto) 0.0 X10*3/uL (0.0-0.2) 03/12/24 05:39 Abs Immat Gran (auto) 0.08 X10*3/uL (0.00-0.03) H 03/12/24 05:39 Absolute Neuts (auto) 13.0 x10*3/uL (2.0-8.3) H 03/12/24 05:39 Absolute Nucleated RBC 0.000 X10*3/uL (0.0-0.012) 03/14/24 06:53 Nucleated RBC % (auto) 0.0 /100WBC (0.0-0.2) 03/14/24 06:53 Smear Tech's Comments VERIFIED 03/11/24 12:21 PT 14.7 SEC (11.1-13.3) H D 03/12/24 18:37 INR 1.2 (0.9-1.1) H 03/12/24 18:37 APTT 29.1 SEC (26.0-36.8) 03/11/24 18:39 D-Dimer High Sensitivty 338 NG/ML 03/11/24 18:39 O2 Saturation 98.0 % 03/11/24 14:03 ABG pH at Pt Temp 7.29 (7.35-7.45) L 03/11/24 14:03 ABG pCO2 at Pt Temp 47 mmHg (32-45) H 03/11/24 14:03 ABG pO2 at Pt Temp 119 mmHg (83-108) H 03/11/24 14:03 ABG HCO3 22 mmol/L (22-26) 03/11/24 14:03 ABG Base Excess (Actual) -3.9 mmol/L 03/11/24 14:03 VBG pH 7.54 (7.32-7.43) H 03/13/24 05:46 VBG pCO2 27 mmHg 03/13/24 05:46 VBG pO2 78 mmHg 03/13/24 05:46 VBG HCO3 23 mmol/L (22-26) 03/13/24 05:46 VBG O2 Saturation 98.0 % 03/13/24 05:46 VBG Base Excess 2.6 mmol/L 03/13/24 05:46 Sodium 139 mmol/L (135-145) 03/12/24 05:39 Potassium 3.8 mmol/L (3.3-5.1) 03/12/24 05:39 Chloride 107 mmol/L (96-108) 03/12/24 05:39 Carbon Dioxide 22 mmol/L (22-29) 03/12/24 05:39 Anion Gap 14 (12-20) 03/12/24 05:39 BUN 15 mg/dL (9-16) 03/12/24 05:39 Creatinine 0.70 mg/dL (0.5-1.4) 03/12/24 05:39 Estim Creat Clear Calc 107.3 03/12/24 05:39 Estimated GFR > 60 03/12/24 05:39 POC Glucose 255 mg/dL (60-115) H 03/14/24 08:01 Random Glucose 210 mg/dL (60-115) H 03/12/24 05:39 Estimat Average Glucose 151 mg/dL 03/11/24 17:18 Hemoglobin A1c % 6.9 % (<6.0) H 03/11/24 17:18 Lactic Acid 1.3 mmol/L (0.5-2.0) 03/12/24 16:02 Lactic Acid F/U @ 2Hr 4.1 mmol/L (0.5-2.0) H* 03/11/24 14:57 Lactic Acid F/U @ 4Hr 4.7 mmol/L (0.5-2.0) H* 03/11/24 17:18 Calcium 8.0 mg/dL (8.4-10.2) L 03/12/24 05:39 Phosphorus 2.7 mg/dL (2.7-4.5) 03/12/24 05:39 Magnesium 2.1 mg/dL (1.6-2.6) 03/12/24 05:39 Total Bilirubin 0.3 mg/dL (0.0-1.0) 03/12/24 05:39 Direct Bilirubin 0.1 mg/dL (0.0-0.5) 03/11/24 12:21 AST 22 U/L (5-31) 03/12/24 05:39 ALT 26 U/L (0-31) 03/12/24 05:39 Alkaline Phosphatase 50 U/L (39-117) 03/12/24 05:39 Troponin I High Sens < 2.7 ng/L (<3.5-17.0) 03/11/24 12:21 B-Natriuretic Peptide 43 pg/mL (<100) 03/11/24 12:21 Total Protein 6.6 g/dL (6.5-8.0) 03/12/24 05:39 Albumin 3.8 g/dL (3.5-5.0) 03/12/24 05:39 Lipase 40 U/L (8-78) 03/11/24 12:21 Procalcitonin 0.39 ng/mL 03/14/24 06:53 TSH 7.71 uIU/mL (0.32-4.0) H 03/11/24 12:21 Free T4 0.76 ng/dL (0.71-1.85) 03/11/24 12:21 Beta HCG, Quant < 2 mIU/mL 03/11/24 12:21 Urine Color Yellow 03/11/24 12:48 Urine Appearance Clear 03/11/24 12:48 Urine pH 6.0 (5.0-9.0) 03/11/24 12:48 Ur Specific [place] 1.010 (1.005-1.025) 03/11/24 12:48 Urine Protein 300 (3+) mg/dL (Neg-Trace) H 03/11/24 12:48 Urine Glucose (UA) >=1000 mg/dL (Negative) H 03/11/24 12:48 Urine Ketones Negative mg/dL (Negative) 03/11/24 12:48 Urine Blood Small (1+) (Negative) H 03/11/24 12:48 Urine Nitrite Negative (Negative) 03/11/24 12:48 Ur Leukocyte Esterase Negative (Negative) 03/11/24 12:48 Urine RBC 3-5 /HPF (0-2) H 03/11/24 12:48 Urine WBC 6-10 /HPF (0-5) H 03/11/24 12:48 Ur Squamous Epith Cells 0-2 /HPF (0-2) 03/11/24 12:48 Urine Bacteria Trace (None Seen) 03/11/24 12:48 Hyaline Casts 0-2 /LPF (0-2) 03/11/24 12:48 U Random Total Protein 30 mg/dL (<12) H 03/12/24 17:40 Urine Creatinine 142.03 mg/dL 03/12/24 17:40 Urine Opiates Screen Not Detected (Not Detect) 03/11/24 12:48 Ur Buprenorphine Scrn Not Detected ng/mL (Not Detect) 03/11/24 12:48 Ur Oxycodone Screen Not Detected ng/mL (Not Detect) 03/11/24 12:48 Urine Methadone Screen Not Detected ng/mL (Not Detect) 03/11/24 12:48 Urine Fentanyl Screen Not Detected (Not Detect) 03/11/24 12:48 Ur Barbiturates Screen Not Detected (Not Detect) 03/11/24 12:48 Ur Phencyclidine Scrn Not Detected (Not Detect) 03/11/24 12:48 Ur Amphetamines Screen Not Detected (Not Detect) 03/11/24 12:48 U Benzodiazepines Scrn Not Detected (Not Detect) 03/11/24 12:48 Urine Cocaine Screen Not Detected (Not Detect) 03/11/24 12:48 U Marijuana (THC) Screen POSITIVE (Not Detect) H 03/11/24 12:48 Ethyl Alcohol < 10 mg/dL 03/11/24 12:21 Influenza Type A (PCR) NEGATIVE (Negative) 03/11/24 12:40 Influenza Type B (PCR) NEGATIVE (Negative) 03/11/24 12:40 RSV RNA Qual (PCR) NEGATIVE (Negative) 03/11/24 12:40 SARS-CoV-2 RNA (RT-PCR) NEGATIVE (Negative) 03/11/24 12:40 Impressions Chest CTA 03/11/24 16:04 IMPRESSION: Somewhat suboptimal bolus phase. No large central pulmonary embolus is seen. Small right upper lobe pulmonary emboli are noted. The lungs are grossly clear. No pleural effusion or pneumothorax is seen. VTE: positive This critical result was discussed with Dr. Harmon (ICU Building Mover) at 6:20 PM on 03/11/2024, and it was ascertained that the content and urgency of this report was understood at the time of direct communication. Head CT 03/11/24 16:04 IMPRESSION: No evidence of acute intracranial hemorrhage or edematous territorial infarction. Chest X-Ray 03/12/24 11:31 IMPRESSION: Satisfactory position of endotracheal tube and nasogastric tube. No evidence of pneumonia. Venous Duplex 03/12/24 11:45 IMPRESSION: No DVT demonstrated in the bilateral lower extremity. Discharge Plan Discharge Anticipated Discharge Date/Time: 03/14/24 10:56 Patient Disposition: Home Health Service Discharge Diagnosis: acute hypoxic respiratory failure due to status asthmaticus small pulmonary embolism uncontrolled hypertension new diagnosis of type 2 diabetes Referrals: [facility] [Outside] - 1 Week Casper Barros MD [Primary Care Provider] - 1 Week Discharge Medications: New Eliquis 5 mg Tablet See Rx Instructions .ROUTE .COMPLEX Qty: 74 0RF Rx Instructions: 2 tabs PO bid x 7 days, then 1 tab PO bid lisinopril 5 mg Tablet 5 mg PO DAILY Qty: 30 0RF Protocol: Hold for SBP< HOLD for SBP < : 90 metformin 500 mg tablet 500 mg PO BID Qty: 60 0RF prednisone 10 mg tablet See Rx Instructions .ROUTE .COMPLEX Qty: 20 0RF Rx Instructions: 40 mg daily x 2 days, then 30 mg daily x 2 days, then 20 mg daily x 2 days, then 10 mg daily x 2 days Continued buspirone 10 mg tablet 10 mg PO BID montelukast 10 mg tablet 10 mg PO BEDTIME hydrochlorothiazide 25 mg tablet 25 mg PO DAILY albuterol sulfate [Ventolin HFA] 90 mcg/actuation HFA aerosol inhaler 2 puff inhalation Q6H PRN (Reason: Shortness Of Breath Or Wheezing) sertraline 50 mg tablet 50 mg PO DAILY rosuvastatin 40 mg tablet 40 mg PO DAILY fenofibrate nanocrystallized 145 mg tablet 145 mg PO DAILY Trelegy Ellipta 100-62.5-25 mcg blister with device 1 ea INHALATION DAILY Discharge Orders: Discharge Order (Routine); Ordered 03/14/24 Ordered By: Miguelina Stewart Diet: Diabetic diet Activity on Discharge: As tolerated Stand Alone Forms: Patient Portal Discharge page Print Language: Estonian Other Ambulatory Orders: Basic Metabolic Panel (Routine) Timeframe: 1 Week Facility: [facility] - Location: Laboratory Ordered By: Miguelina Stewart Care Plan Goals: lung health Health Concerns: acute hypoxic respiratory failure due to status asthmaticus small pulmonary embolism uncontrolled hypertension new diagnosis of type 2 diabetes Plan of Treatment: Prednisone 10 mg tabs, taper as follows: 40 mg (4 tabs) daily x 2 days, then 30 mg (3 tabs) daily x 2 days, then 20 mg (2 tabs) daily x 2 days, then 10 mg (1 tab) daily x 2 days Continue Trelegy; use albuterol as needed for rescue 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 Request referral to hematology to consider testing for disorders that predispose you to clot. Continue HCTZ, add lisinopril 5 mg daily. Mediterranean diet. Avoid sugars. Mediterranean diet. At least 30 minutes of aerobic exercise daily. Take metformin 500 mg twice daily. Please follow up with your primary care doctor within 1 week. Return to the hospital if you experience recurrent or worsening symptoms. Assessment: See Discharge Summary. Patient Instructions: Asthma (DC), Mediterranean Diet (DC), Type 2 Diabetes Management for Adults (DC)
[2024-03-14 11:56] VITALS: BP 168/91; PULSE 94; RESP 19; TEMP 36.9; O2SAT 96
[2024-03-14 11:58] VITALS: PULSE 91; RESP 18; O2SAT 96
[2024-03-14 12:03] LABS: Glucose, Whole Blood 186 mg/dL (60-115)
--- NOTE | 2024-03-14 12:13 | PC.NURSE ---
informed md of pt's bp and pain
--- NOTE | 2024-03-15 10:23 | P.F2F_ITS ---
Service Date Service Date: 03/15/24 Encounter Date of encounter: 03/15/24 Reasons for Services Signs and symptoms assessed: Dyspnea on Exertion, Impaired Standing Balance Reason for penitentiary: medication management, medication treatment and teach disease management Reason for physical therapy: home safety and mobility, therapeutic exercises, gait/transfer training, assess need for DME, ADL training and energy conservation MD Overseeing Care: Casper Barros Homebound: Leaving the home is medically contraindicated at this time without the asist of a device and/or another person due th the listed conditions above and below. Reason homebound: shortness of breath with minimal effort and weakness related to hospital stay Homebound supporting statement: Gait Training, Stair Training, Therapeutic Activities, Therapeutic Exercise, Patient Education, Safety,Balance Certification: Based on the above findings, I certify that this patient is confined to the home and needs intermittent penitentiary care, physical therapy and/or speech therapy, or continues to need occupational therapy. The patient is under my care, and I have initiated the establishment of the plan of care. The patient will be followed by a physician who will periodically review the plan of care. Time Spent With Patient Time: Total time managing care of this patient today ____ minutes.
--- NOTE | 2024-03-15 15:32 | P.CDIM_ITS ---
PROVIDER RESPONSE TEXT: To clarify, the appropriate diagnosis supported by the clinical indicators: Moderate persistent QUERY TEXT: PHYSICIAN'S DOCUMENTATION REQUEST Date of Query: 03/14/2024 08:15 AM EDT Patient Name: Rosa Strange Admit Date: 03/11/2024 Dear Miguelina Stewart, A review of the medical record indicates additional documentation may be needed. Please review below and update the documentation accordingly. Clinical indicators from the record include: Progress note: Acute hypoxic respiratory arrest/failure due to asthma exacerbation. ICU note dated 03/12 - Respiratory: Acute severe asthma: currently intubated on ventilator support. Based on the above, please clarify in the Progress Notes further specificity regarding the type of as thma: Mild intermittent Mild persistent Moderate persistent Severe persistent Other specific to the diagnosis of Asthma Other (explain) Clinically unable to determine (explain) Thank you, Cadence Robertson, CCS, CDIS Use of terms such as suspected, likely, concern for, or probable (associated with a specific diagnosi s that is being evaluated, monitored, or treated as if it exists) are acceptable and can be coded in the inpatient se tting, when documented at the time of discharge. Please use your independent medical judgment in providing your response. THIS QUERY IS PART OF THE PERMANENT MEDICAL RECORD
== END 2024-03-14 14:54 | disposition home health service (06) | DRG 141 ==
LOC: HO.ED 13:40 → HO.EDOVER 14:36 → HO.ICU 14:48 → HO.IMC 03-13 06:29
PROVIDERS: Physician Assistant Medical; Admitting Provider Internal Medicine Critical Care Medicine; Emergency Provider Emergency Medicine; PCP Internal Medicine; Visit Provider Family Medicine
DX: J45.41 Moderate persistent asthma with (acute) exacerbation (principal); J96.01 Acute respiratory failure with hypoxia; I26.99 Other pulmonary embolism without acute cor pulmonale; E11.9 Type 2 diabetes mellitus without complications; F32.A Depression, unspecified; F17.290 Nicotine dependence, other tobacco product, uncomplicated; Z71.6 Tobacco abuse counseling; E87.21 Acute metabolic acidosis; G47.33 Obstructive sleep apnea (adult) (pediatric); Z20.822 Contact with and (suspected) exposure to COVID-19; Z79.899 Other long term (current) drug therapy
CPT/HCPCS: 0241U; 36415; 70450; 71045; 71275; 80048; 80053; 80076; 80307; 81001; 82570; 82803; 82947; 83036; 83605; 83690; 83735; 83880; 84100; 84145; 84156; 84439; 84443; 84484; 84702; 85025; 85027; 85379; 85610; 85730; 87040; 87086; 93306; 93970; 94002; 94003; 97162; 99285; C1758; J0456; J0613; J0696; J1650; J2250; J2251; J2359; J2543; J2704; J2919; J3010; J3475; J3480; Q9967

== ENCOUNTER 2024-03-11 14:23 | Outpatient (BNV) | payer OTHER, SELFPAY | END 2024-03-12 17:00 | PROVIDERS: Admitting Provider Internal Medicine Critical Care Medicine; Emergency Provider Emergency Medicine; PCP Internal Medicine; Visit Provider Internal Medicine Cardiovascular Disease | DX: I26.99 Other pulmonary embolism without acute cor pulmonale (principal) | CPT/HCPCS: 93306 ==

== ENCOUNTER → 2024-03-11 14:23 | Outpatient (BNV) | payer OTHER, SELFPAY | PROVIDERS: Admitting Provider Internal Medicine Critical Care Medicine; Emergency Provider Emergency Medicine; PCP Internal Medicine; Visit Provider Family Medicine | DX: J45.901 Unspecified asthma with (acute) exacerbation (principal); J45.902 Unspecified asthma with status asthmaticus; J96.01 Acute respiratory failure with hypoxia; I10 Essential (primary) hypertension; I26.99 Other pulmonary embolism without acute cor pulmonale; E11.9 Type 2 diabetes mellitus without complications; R09.2 Respiratory arrest | CPT/HCPCS: 99232; 99239; G0180 ==

== ENCOUNTER → 2024-03-11 14:23 | Outpatient (BNV) | payer OTHER, SELFPAY | PROVIDERS: Admitting Provider Internal Medicine Critical Care Medicine; Emergency Provider Emergency Medicine; PCP Internal Medicine; Visit Provider Internal Medicine Critical Care Medicine | DX: J96.01 Acute respiratory failure with hypoxia (principal); J96.02 Acute respiratory failure with hypercapnia; E87.20 Acidosis, unspecified; J45.901 Unspecified asthma with (acute) exacerbation | CPT/HCPCS: 99222; 99232; 99291 ==